=== PATIENT | female | born 1955 | race Caucasian/White ===

== ENCOUNTER → 2020-05-25 10:16 | Outpatient (BNVA) | payer SELFPAY | PROVIDERS: PCP Family Medicine; Visit Provider Nurse Practitioner | DX: N39.0 Urinary tract infection, site not specified (principal) | CPT/HCPCS: 81000 ==

== ENCOUNTER → 2020-06-01 12:22 | Outpatient (BNVA) | payer SELFPAY | PROVIDERS: PCP Family Medicine; Visit Provider Nurse Practitioner | DX: N39.0 Urinary tract infection, site not specified (principal) | CPT/HCPCS: 81000; 87077; 87086; 87184 ==

== ENCOUNTER → 2020-06-08 09:04 | Outpatient (BNVA) | payer SELFPAY | PROVIDERS: PCP Family Medicine; Visit Provider Family Medicine Adult Medicine | DX: N39.0 Urinary tract infection, site not specified (principal); R39.15 Urgency of urination; N81.10 Cystocele, unspecified; Z87.440 Personal history of urinary (tract) infections | CPT/HCPCS: 81003 ==

== ENCOUNTER → 2021-01-23 15:47 | Outpatient (BNVA) | payer SELFPAY | PROVIDERS: PCP Family Medicine; Visit Provider Obstetrics & Gynecology | DX: N81.10 Cystocele, unspecified (principal); Z87.440 Personal history of urinary (tract) infections; Z90.710 Acquired absence of both cervix and uterus | CPT/HCPCS: 76830 ==

== ENCOUNTER → 2021-02-16 15:29 | Outpatient (BNVA) | payer SELFPAY | PROVIDERS: PCP Family Medicine; Visit Provider Obstetrics & Gynecology | DX: N39.3 Stress incontinence (female) (male) (principal); N81.10 Cystocele, unspecified; N81.9 Female genital prolapse, unspecified; Z87.440 Personal history of urinary (tract) infections; R39.15 Urgency of urination | CPT/HCPCS: 87635 ==

== ENCOUNTER 2021-02-21 10:18 | Observation (INO) | payer SELFPAY ==
[2021-02-16 14:20] VITALS: BMI 24.0
--- NOTE | 2021-02-16 14:34 | P.ANESASSM_ITS ---
Pre-Anesthetic Assessment Pre-Anesthetic Assessment: Height/Weight: Height 1.63 m Weight 63.503 kg Proposed Procedure: Operation Date: 02/21/21 11:30 Proposed Procedures p Sub urethral sling, colporrhaphy, anterior repair [id number] N81.9 N81.10 N39.3(Not Applicable) - Vannesa Greer MD s Anterior Repair(Not Applicable) - Vannesa Greer MD Was Beta Mahendra taken within 24 hours: N/A Was Clonidine taken within 24 hours: N/A Social: Social History: No alcohol and No tobacco Comment: Smokes suma Exam: Pre-Anes Outpt Exam: alert, oriented x 3, clear to auscultation bilaterally and regular rate & rhythm Airway: Submandibular: WNL Cervical ROM: WNL MP: 2 Dentition: False History/ROS: No significant history except as noted Pulmonary: Pulmonary: COPD Anesthetic Plan: ASA status: 2 Anesthesia: General Risk of > 500 ml blood loss (7ml/kg in children): No PFSH Anesthesia PFSH: Medical History Female bladder prolapse History of chronic urinary tract infection Hx of cervical cancer Urgency of urination Urinary tract infection Surgical History H/O section 1984- distress H/O: hysterectomy History of laparotomy 01/09/1999- laparotomy with BSO and extensive adhesiolysis, nunez urethropexy, Performed by Dr. Gomez at [facility] in [place], [place]. History of left oophorectomy 1982- partial left oophorectomy, Benign tumor of the ovary. Hx of hysterectomy S/P appendectomy 01/09/1999-Performed at time of Laparotomy with BSO and adhesiolysis. Performed by Dr. Gomez at [facility] in [place], [place]. S/P conization of cervix 1981- precancer of cervix S/P tonsillectomy 1974 Family History Father Hyperlipidemia Hypertension Diabetes Heart disease Mother Cancer unknown source Denies family history of Ovarian cyst Chronic kidney disease (CKD) Bleeding disorder Thyroid disease Stroke Data Anesthesia Cardiac Studies: No Data to Display
[2021-02-21] VITALS (14 sets, daily range): BP systolic 97–151; BP diastolic 53–82; PULSE 51–96; RESP 15–27; TEMP 36.1–36.5; O2SAT 90–99
[2021-02-21] MEDS: sodium chloride 0.9% 1,000 ML 30 ML IV (07:30)
[2021-02-21] MEDS: acetaminophen 1,000 MG/100 ML PIGGYBACK 400 MG IV (07:30)
--- NOTE | 2021-02-21 07:36 | P.ANESUD_ITS ---
Pre-Anesthetic Update Pre-Anesthetic Assessment: Date of Surgery/Procedure: 02/21/21 Preop Amarilis gnosis: bladder prolapse Proposed Procedure: Operation Date: 02/21/21 09:00 Proposed Procedures p Sub urethral sling, colporrhaphy, anterior repair [id number] N81.9 N81.10 N39.3(Not Applicable) - Vannesa Greer MD s Anterior Repair(Not Applicable) - Vannesa Greer MD Any changes to Pre-Anesthetic Assessment?: Yes Last Intake: Intake Last Liquid Date 02/20/21 Last Liquid Time 20:00 Last Solid Date 02/20/21 Last Solid Time 20:00 Vitals: Temperature 97.7 F 02/21/21 07:12 Pulse Rate 53 L 02/21/21 07:12 Pulse Rhythm 02/21/21 07:13 Pulse Strength 3+ Normal 02/21/21 07:13 Respiratory Rate 18 02/21/21 07:12 Blood Pressure 151/82 02/21/21 07:12 Blood Pressure Annabel n 105 02/21/21 07:12 Pulse Oximetry 98 02/21/21 07:12 Oxygen Delivery Me thod 02/21/21 07:13 Exam: Pre-Anes Outpt Exam: alert, oriented x 3, clear to auscultation bilaterally and regular rate & rhythm Cardiac Studies: No Data to Display
[2021-02-21] MEDS: gabapentin 300 mg Capsule PO (07:43)
[2021-02-21] MEDS: CELEcoxib 200 mg Capsule 400 MG PO (07:44)
[2021-02-21] MEDS: ketorolac 30 mg/mL INJ IVP ×3 (07:50→17:25)
[2021-02-21 07:52] LABS: Eosinophils # 0.1 10^3/uL (0.0-0.8); Hematocrit 40.2 % (37.0-47.0); Hemoglobin 13.2 g/dL (11.5-15.3); Lymphocytes # 1.9 10^3/uL (0.8-4.8); Lymphocytes % 42.5 %; Mean Corpuscular HGB Conc 32.8 g/dL (30.0-36.0); Mean Corpuscular Hemoglobin 29.8 pg (28.0-34.0); Mean Corpuscular Volume 90.7 fL (81-99); Mean Platelet Volume 10.3 fL (7.4-10.4); Monocytes # 0.4 10^3/uL (0.2-0.9); Monocytes % 9.8 %; Neutrophils # 2.03 10^3/uL (1.8-7.7); Neutrophils % 45.5 %; Nucleated Red Blood Cells % 0 %; Platelet Count 183 10^3/cmm (130-400); Red Blood Count 4.43 10^6/uL (4.1-5.3); Red Cell Distribution Width 14.3 % (12.1-15.1); White Blood Count 4.5 10^3/uL (4.0-10.0)
--- NOTE | 2021-02-21 08:32 | W.PM.OPSUD ---
Surgery/Procedure H&P Update DATE OF PROCEDURE: February 21, 2021 DATE H&P PERFORMED: 02/16/21 H&P UPDATE INFORMATION: I have reviewed H&P completed within last 30 days, I have examined patient prior to procedure and No changes to prior documentation PREOP DIAGNOSIS: bladder prolapse PLANNED PROCEDURE: Operation Date: 02/21/21 09:00 Proposed Procedures p Sub urethral sling, colporrhaphy, anterior repair [id number] N81.9 N81.10 N39.3(Not Applicable) - Vannesa Greer MD s Anterior Repair(Not Applicable) - Vannesa Greer MD
[2021-02-21 08:37] LABS: Anion Gap 11.9 (5-19); Blood Urea Nitrogen 17 mg/dL (8-23); Calcium 9.2 mg/dL (8.5-10.5); Carbon Dioxide 24 mmol/L (22-29); Chloride 107 mmol/L (98-107); Creatinine Clr Calc Pharmacy 87.0623; Glomerular Filtration Rate 100.6 mL/min (90-130); Glucose 100 mg/dL (65-115); Osmolality Calculated 290 mOsm/kg (285-295); Potassium 3.9 mmol/L (3.5-5.1); Sodium 139 mmol/L (136-145)
--- NOTE | 2021-02-21 10:27 | PM.OP ---
Operative Report Date of procedure: February 21, 2021 Pre-op Diagnosis: bladder prolapse Post-op diagnosis: same Procedure Done: Anterior colporrhaphy, suburethral sling, perineorrhaphy, cystoscopy Implants: sub urethral sling Pathology: none sent Surgeon: Vannesa Greer Anesthesia: General Estimated blood loss (mL): 25 IV fluids (mL): 800 Urine output (mL): 500 Complications: none Findings: cystocele, loose perineal body, severe incontinence Condition: stable Disposition: PACU Brief History: The patient presented with worsening urinary incontinence and palpable bulge in her vagina Procedure: The patient was taken to the operating room, where monitored anesthesia was administered and found to be adequate. She was prepped and draped in the normal sterile fashion in the [facility] A flores catheter was placed. The vaginal cuff was identified and an allis clamp was placed in the midline of the vaginal mucosa, approximately 2 cm anterior to the cuff. A second allis clamp was placed in the midline of the vaginal mucosa, approximately 3 cm from the introitus. An incision was made in the midline from clamp to clamp. The vaginal mucosa was clamped laterally and the cystocle dissected off of the vesicovaginal fascia. The cystocele was packed away and the vesicovaginal fascia brought together in the midline with figure of 8 interrupted sutures of O-Vicryl. The packing was removed and the excess vaginal tissue trimmed. The incision was repaired with 0-Vicryl in a running fashion. Attention was then turned to the sling portion of the procedure. An Allis clamp was placed approximately 2 cm below the urethra and another placed approximately 3 cm distal from that. An incision was made between the 2. The tissue was sharply and bluntly dissected along the pubic ramus bilaterally. The sling was placed on the left first by going through the incision and attaching the sling to the obturator foramen membrane . The right side was performed in a similar fashion, placing the applicator through the incision and attaching to the obturator foramen membrane. The Flores catheter was removed and the cystoscope advanced into the blader. Methylene blue was given and bilateral spill of blue fluid was noted from both ureteral orifices. The bladder was drained. 250 ml of sterile saline was placed into the bladder. leakage was noted with valsalva. The sling was tightened until there was no further leakage. The incision was repaired with 2-0 Vicryl in a running locked fashion. Attention was then turned to the perineorrhphy. Allis clamps were placed on the posterior fourchette. A 3 cm wedge of the fourchette was removed. This was repaired in the usual fashion with O-vicryl. Vaginal packing was placed. The patient tolerated the procedure well. Sponge, lap and needle counts were correct times three. She was taken to the recovery room in stable condition.
--- NOTE | 2021-02-21 10:29 | P.PCN_ITS ---
PACU note PACU note: VSS, Good respiratory effort, report to PRODUCTION CONTROL EXPEDITER Post-Anesthesia Exam: awake
--- NOTE | 2021-02-21 10:29 | PM.PACU ---
PACU note PACU note: VSS, Good respiratory effort, report to WEB MACHINE TENDER Post-Anesthesia Exam: awake
[2021-02-21] MEDS: dextrose 5%-lactated ringers 1,000 ML 125 ML IV (11:39)
[2021-02-21] MEDS: HYDROcodone-acetaminophen 5-325 mg Tablet 1 TAB PO ×3 (12:33→23:21)
--- NOTE | 2021-02-21 13:50 | ANE.PACU2 ---
Inpatient post-anesthesia follow up: Airway intact: Yes Vital signs: Temperature 97.5 F Pulse Rate 62 Respiratory Rate 18 Blood Pressure 101/62 Pulse Oximetry 96 Oxygen Delivery Me thod Room Air Oxygen Flow Rate Fraction of Inspir ed Oxygen Hydration adequate: Yes Nausea and vomiting: No Pain level: 3 Mental status: Baseline
[2021-02-21] MEDS: phenazopyridine 100 mg Tablet 200 MG PO (15:20)
--- NOTE | 2021-02-21 17:15 | PC.NURSE ---
Pt ambulated in hallway and around nurses station x4 laps. Pt tolerated well and denied any complaints. Pt back requests to go back to bed. IV restarted, ice pack given for perineum. Pt requested something for pain at this time.
--- NOTE | 2021-02-21 18:00 | PC.NURSE ---
Pt pulled out IV, nurse called in at this time. IV pump turned off, call made to Dr Greer to see if new IV is needed to order received that no IV is needed at this time.
[2021-02-21] MEDS: docusate sodium 100 mg Capsule PO (18:28)
[2021-02-21] MEDS: ibuprofen 800 mg tablet PO (20:27)
[2021-02-22 01:05] VITALS: RESP 16
[2021-02-22] MEDS: oxyCODONE-APAP 5-325 mg Tablet 1 TAB PO ×2 (01:05→07:29)
[2021-02-22 05:30] VITALS: BP 98/59; PULSE 60; RESP 15; TEMP 36.4
[2021-02-22 06:06] LABS: Hematocrit 37.3 % (37.0-47.0); Mean Corpuscular HGB Conc 32.2 g/dL (30.0-36.0); Mean Corpuscular Hemoglobin 29.6 pg (28.0-34.0); Mean Corpuscular Volume 92.1 fL (81-99); Platelet Count 183 10^3/cmm (130-400); Red Blood Count 4.05 10^6/uL (4.1-5.3); Red Cell Distribution Width 14.5 % (12.1-15.1); White Blood Count 13.3 10^3/uL (4.0-10.0)
[2021-02-22 07:29] VITALS: RESP 18
[2021-02-22] MEDS: docusate sodium 100 mg Capsule PO (09:24)
--- NOTE | 2021-02-22 10:12 | PC.NURSE ---
Dr Greer in room removing packing at this time
[2021-02-22 10:40] VITALS: BP 137/79; PULSE 75; RESP 18; TEMP 36.4; O2SAT 98
--- NOTE | 2021-02-22 10:40 | PM.DCS ---
Discharge Providers Date of Admission: 02/21/21 10:18 Date of Discharge: February 22, 2021 Attending Provider at Admission: Vannesa Greer MD Attending Provider at Discharge: Vannesa Greer MD Primary Care Provider: Mar Jaeger MD Diagnoses at Discharge Discharge Diagnosis (1) Postoperative state: Status: Acute Reason for Visit Reason for Visit: Sub urethral sling, colporrhaphy, anterior repair Hospital Course Hospital Course The patient was admitted for surgery. She did well postoperatively and was ready for discharge on day #1 Physical Exam Const: COMMON NORMALS: no acute distress, average body habitus, patient oriented x3, no limitations, healthy appearing and alert GENERAL APPEARANCE: cooperative, comfortable, well kempt and well developed ORIENTATION/CONSCIOUSNESS: Yes awake, Yes oriented to person, Yes oriented to place and Yes oriented to time Neck/C-Spine: COMMON NORMALS: full ROM and supple Resp: COMMON NORMALS: normal respiratory effort EFFORT & INSPECTION: Yes able to speak in complete sentences GI: COMMON NORMALS: Soft to palpation and non-tender PALPATION: Yes Soft to palpation : SPECULUM EXAM - VAGINA: Yes other (packing removed. sutures are clean/dry/intact) Extremity: COMMON NORMALS: no clubbing, cyanosis or edema and no calf tenderness Neuro: COMMON NORMALS: patient oriented x3 SENSORIUM/ORIENTATION: Yes alert, Yes oriented to person, Yes oriented to place and Yes oriented to time Psych: APPEARANCE: Yes well kempt Urinary Catheter Management^: Jacobs: Cath Placed During This Visit: yes, but has since been removed by the nurse Reason for Continuing Indwelling Catheter: Decision to DC Catheter Date Urinary Catheter Removed: 02/22/21 Time Urinary Catheter Discontinued: 10:15 Discharge Data Data Completed and Pending: Pending at discharge Category Date Time Status ES surgery / GI i mages Routine Exams 02/21/21 08:19 Ordered Urine Culture Rou mary jo Lab 02/21/21 07:07 Results Labs from last 24 hours 02/22/21 05:15 WBC 13.3 H RBC 4.05 L Hgb 12.0 Hct 37.3 MCV 92.1 MCH 29.6 MCHC 32.2 RDW 14.5 Plt Count 183 MPV 11.0 H Vitals: Last Vital Signs Temp 97.6 F 02/22/21 05:30 Pulse 60 02/22/21 05:30 Resp 18 07/07/21 07:29 BP 98/59 02/22/21 05:30 Pulse Ox 94 02/21/21 15:20 Discharge Plan Discharge Patient Disposition: Home Condition: Stable Prescriptions: New hydrocodone-acetaminophen 5-325 mg Tablet 1 tab PO Q4H PRN (Reason: MODERATE) Qty: 20 RF: 0 Discontinued Tylenol PM 500 mg PO PRN RF: 0 Discharge Orders: Discharge Order (Routine); Ordered 02/22/21 Ordered By: Vannesa Greer Referrals: Vannesa Greer MD [Physician] - 02/27/21 8:45 am (* Your incision check appointment is on 02/27/2021 at 8:45am. * Your 6 week follow up appointment is on 04/03/2021 at 10:45am.) Patient Instructions: Anterior Vaginal Repair (DC), Bladder Sling Procedures (DC), OB Discharge Report, OB Food/Drug Interaction Guide, Opioid Safety Discharge Attestations Time Spent in Discharge Care*: less than 30 min Quality Metrics Clinical Quality Measures During this hospital stay, did patient experience: None Coding Level of Care Code Acute Chg FW DC note Diagnoses Postoperative state Z98.890
--- NOTE | 2021-02-22 11:24 | PC.NURSE ---
Patient hit call light to tell nurse she had urinated, patient did not pee in urine hat, patient educated on importance of peeing in urine hat and states that she will pee in urine hat next time.
[2021-02-22 11:30] VITALS: BP 137/79; PULSE 75; RESP 18; TEMP 36.4; O2SAT 98
[2021-02-22] MEDS: HYDROcodone-acetaminophen 5-325 mg Tablet 1 TAB PO (11:33)
== END 2021-02-22 11:40 | disposition home or self-care (01) ==
LOC: OBGYN 10:19
PROVIDERS: Admitting Provider Obstetrics & Gynecology; PCP Family Medicine; Visit Provider Obstetrics & Gynecology
PROC: (CPT 57288; principal; 2021-02-21 09:00)
PROC: 0JQC0ZZ Repair Pelvic Region Subcutaneous Tissue and Fascia, Open Approach (ICD-10-PCS; CPT 57240; 2021-02-21 09:00)
DX: N81.10 Cystocele, unspecified (principal); J44.9 Chronic obstructive pulmonary disease, unspecified; Z85.41 Personal history of malignant neoplasm of cervix uteri; Z82.49 Family history of ischemic heart disease and other diseases of the circulatory system; Z83.3 Family history of diabetes mellitus
CPT/HCPCS: 57240; 57288; 36415; 80048; 85025; 85027; 87086; 96365; 96374; C1713; G0378; J0690; J1100; J1885; J2405; J2704; J2710; J3010; J3490; J7030; Q9968

== ENCOUNTER → 2021-03-03 09:59 | Outpatient (BNVA) | payer OTHER, SELFPAY | PROVIDERS: PCP Family Medicine; Visit Provider Emergency Medicine | DX: Z01.812 Encounter for preprocedural laboratory examination (principal); Z20.822 Contact with and (suspected) exposure to COVID-19 | CPT/HCPCS: 87635 ==

== ENCOUNTER → 2021-03-07 08:35 | Outpatient (BNVA) | payer SELFPAY | PROVIDERS: PCP Family Medicine; Visit Provider Obstetrics & Gynecology | DX: N89.8 Other specified noninflammatory disorders of vagina (principal); Z98.890 Other specified postprocedural states | CPT/HCPCS: 87070; 87077; 87184; 87205; 87481; 87512; 87798; 87799 ==

== ENCOUNTER → 2021-04-03 11:23 | Outpatient (BNVA) | payer SELFPAY | PROVIDERS: PCP Family Medicine; Visit Provider Obstetrics & Gynecology | DX: R10.2 Pelvic and perineal pain (principal); Z98.890 Other specified postprocedural states | CPT/HCPCS: 87070; 87205; 87481; 87512; 87798; 87799 ==

== ENCOUNTER 2021-05-02 18:09 | Emergency (ER) | payer SELFPAY ==
[2021-05-02 18:14] VITALS: BP 174/78; PULSE 110; RESP 20; TEMP 36.6; O2SAT 95; BMI 24.7
[2021-05-02] MEDS: diphenhydrAMINE 50 mg Capsule PO (18:42)
[2021-05-02] MEDS: predniSONE 20 mg Tablet 60 MG PO (18:42)
[2021-05-02] MEDS: famotidine 20 mg Tablet 40 MG PO (18:43)
[2021-05-02 18:44] VITALS: BP 93/62; PULSE 122; RESP 22; O2SAT 94
[2021-05-02 19:06] VITALS: BP 100/62; PULSE 104; O2SAT 93
--- NOTE | 2021-05-02 19:13 | W.ED.GENADLT ---
HPI - General Adult General: Chief complaint: Allergic Reaction Stated complaint: Allergic Reaction to Metronidazol Time Seen by Provider: 05/02/21 18:20 History of Present Illness: HPI narrative: Patient is a 65-year-old female with a history of allergies to penicillin who presents emergency after taking metronidazole at 4:30 PM. Shortly after, patient reports diffuse tingling throughout her body and itchy redness in her hands, chest, abdomen, legs and back. Patient also reported mild nausea but denies any vomiting, abdominal complaints or diarrhea or shortness of breath. Patient has no known allergy to metronidazole in the past. Patient denies any alcohol use. Onset: 4:30pm Duration: 2 hrs Location: home Severity:moderate Review of Systems Narrative: Constitutional: No fever, no chills. HEENT: No vision changes CV: No chest pain, no palpitations PULM: no cough, no dyspnea. GI: No abdominal pain, +N/-V/-D. : No dysuria MSKEL: No muscle pain SKIN: +arms and legs redness, +abdominal redness and hives NEURO: No headache, no focal weakness. HEME: No visible bruises PSYCH: Normal mood PFSH ED PFSH: Medical History Female bladder prolapse History of chronic urinary tract infection Hx of cervical cancer Urgency of urination Urinary tract infection Surgical History H/O section 1984- distress H/O: hysterectomy History of laparotomy 01/09/1999- laparotomy with BSO and extensive adhesiolysis, nunez urethropexy, Performed by Dr. Gomez at [facility] in [place], [place]. History of left oophorectomy 1982- partial left oophorectomy, Benign tumor of the ovary. Hx of hysterectomy S/P appendectomy 01/09/1999-Performed at time of Laparotomy with BSO and adhesiolysis. Performed by Dr. Gomez at [facility] in [place], [place]. S/P conization of cervix 1981- precancer of cervix S/P tonsillectomy 1974 Family History Father Hyperlipidemia Hypertension Diabetes Heart disease Mother Cancer unknown source Denies family history of Ovarian cyst Chronic kidney disease (CKD) Bleeding disorder Thyroid disease Stroke Social History Smoking and tobacco status: former smoker Alcohol intake: never Female Reproductive History: Date of last menstrual period: 11/10/20 Physical Exam Narrative: EXAM NARRATIVE: Head: Atraumatic Eyes: PERRL, conjunctiva without injection ENT: Mucous membrane moist, no oropharygeal involvement, no stridor NECK: Supple, ROM intact LUNGS: LCTAB, no crackles/rhonchi CV: RRR ABDOMEN: Soft, nontender in all quadrants, +utarica over the abdomen EXTREMITY: Normal ROM SKIN: +erythema over arms and legs NEURO: Awake and alert, no focal motor deficits PSYCH: Normal mood and affect Course Vital Signs: Vital signs: Vital Signs Temperature 97.8 F 05/02/21 18:14 Pulse Rate 87 05/02/21 20:21 Respiratory Rate 17 05/02/21 20:21 Blood Pressure 106/82 05/02/21 20:21 Pulse Oximetry 96 05/02/21 20:21 MDM - General Adult MDM Narrative: Medical decision making narrative: 65-year-old female with no known allergies to metronidazole presenting to the emergency room with complaints of diffuse pruritic erythema and urticaria over the abdomen. On exam, patient is is noted to be mildly tachycardic to the 110s. No wheezing on exam. No signs of oral airway involvement. Intervention: Pepcid, benadryl, IVF, prednisone, PO challenge, and reevaluation On reassessment 9 PM, patient appears to be symptomatically improved. Erythema and urticaria appears to be improved at this time. No signs of oral airway compromise. Patient continues to be hemodynamically stable. Heart rate improved after medicine. At this time, patient elects to go home. Patient tolerated p.o. without any difficulty. Disposition: Discharge. I have given patient strict return precaution for any signs of angioedema or delayed anaphylaxis. Discharge Plan Discharge Patient Disposition: Home Clinical Impression: Hives Condition: Stable Prescriptions: No Action acetaminophen [Tylenol] 325 mg capsule 325 mg PO QID PRNRF: 0 Move Free Ultra Faster Comfort 216 mg tablet PO DAILY RF: 0 metronidazole [Flagyl] 500 mg tablet 500 mg PO BID Qty: 14 RF: 0 Discharge Orders: Discharge ED (Routine); Ordered 05/02/21 Ordered By: Malka Carter Referrals: Mar Jaeger MD [Primary Care Provider] - Discharge Diet: Advance as tolerated Discharge Activity: Resume usual activity Patient Instructions: Urticaria (ED) Activity Restrictions/Additional Instructions: Please come back to the emergency room if you notice any worsening rash, redness, difficulty swallowing, nausea/vomiting, diarrhea, difficulty breathing, drooling, difficulty speaking, or any new or concerning complaints. Coding Level of Care Code ED Pharmacology Teacher for Alireza Monsivais
[2021-05-02] MEDS: sodium chloride 0.9% 1,000 ML 999 ML IV (19:45)
[2021-05-02 20:21] VITALS: BP 106/82; PULSE 87; RESP 17; O2SAT 96
[2021-05-02 20:34] VITALS: BP 106/86; PULSE 87; RESP 17; O2SAT 96
== END 2021-05-02 20:33 | disposition home or self-care (01) ==
PROVIDERS: Emergency Provider Emergency Medicine; PCP Family Medicine
DX: L50.9 Urticaria, unspecified (principal); Z85.41 Personal history of malignant neoplasm of cervix uteri; Z87.891 Personal history of nicotine dependence
CPT/HCPCS: 96360; 99283; J7030; J7512; Q0163

== ENCOUNTER → 2021-05-22 09:48 | Outpatient (BNVA) | payer SELFPAY | PROVIDERS: PCP Family Medicine; Visit Provider Obstetrics & Gynecology | DX: R30.0 Dysuria (principal) | CPT/HCPCS: 81000; 87077; 87086; 87184 ==

== ENCOUNTER → 2021-06-19 14:00 | Outpatient (BNVA) | payer SELFPAY | PROVIDERS: PCP Family Medicine; Visit Provider Obstetrics & Gynecology | DX: R39.9 Unspecified symptoms and signs involving the genitourinary system (principal) | CPT/HCPCS: 81000 ==

== ENCOUNTER → 2021-07-17 09:44 | Outpatient (BNVA) | payer SELFPAY | PROVIDERS: PCP Family Medicine; Visit Provider Obstetrics & Gynecology | DX: R39.89 Other symptoms and signs involving the genitourinary system (principal); N81.9 Female genital prolapse, unspecified; N32.81 Overactive bladder | CPT/HCPCS: 81000 ==

== ENCOUNTER → 2021-09-15 08:17 | Outpatient (BNVA) | payer MEDICARE, SELFPAY | PROVIDERS: PCP Family Medicine; Visit Provider Obstetrics & Gynecology | DX: N81.10 Cystocele, unspecified (principal); N81.9 Female genital prolapse, unspecified; Z20.822 Contact with and (suspected) exposure to COVID-19 | CPT/HCPCS: 87635 ==

== ENCOUNTER 2021-09-20 11:23 | Observation (INO) | payer MEDICARE, SELFPAY ==
[2021-09-14 15:01] VITALS: BMI 24.0
--- NOTE | 2021-09-14 15:24 | ANES.PREANE2 ---
Pre-Anesthetic Assessment Height/Weight: Height 1.63 m Weight 63.503 kg Preop Diagnosis: bladder prolapse Operation Date: 09/20/21 07:00 Proposed Procedures p Sacrospinous Ligament Suspension [id number] N81.9 N81.10(Not Applicable) - Suhail Leach MD s Anterior Repair Anterior Colporrhaphy(Not Applicable) - Suhail Leach MD Familial anesthetic complications: none Was Beta Mahendra taken within 24 hours: N/A Was Clonidine taken within 24 hours: N/A Social Tobacco and No alcohol Exam alert, oriented x 3 and regular rate & rhythm Airway Submandibular: within normal limits Cervical ROM: within normal limits Mallampati: Class II Dentition: false Pulmonary Chronic Obstructive Pulmonary Disease Anesthetic Plan ASA status: 2 Anesthesia: General Risk of > 500 ml blood loss (7ml/kg in children): No Medications/Allergies Home Medications Medication Instructions Recorded Confirmed Last Taken Type acetaminophen 325 mg capsule 325 mg PO QID PRN 02/27/21 09/14/21 Unknown History (Tylenol) calcium fructoborate 216 mg tablet mg PO DAILY tab 03/03/21 07/17/21 Unknown History (Move Free Ultra Faster Comfort) Laxatives PO .every other day 07/17/21 07/17/21 Unknown History Allergies Allergy/AdvReac Type Severity Reaction Status Date / Time metronidazole [From Flagyl] Allergy ALGY-Hives Verified 07/17/21 08:56 Penicillins AdvReac Severe Hives Verified 07/17/21 08:56 Sulfa (Sulfonamide AdvReac Intermediate Itch & rash Verified 07/17/21 08:56 Antibiotics) [facility] Anesthesia Medical History Female bladder prolapse History of chronic urinary tract infection Hx of cervical cancer Urgency of urination Urinary tract infection Surgical History H/O section 1984- distress H/O: hysterectomy History of laparotomy 01/09/1999- laparotomy with BSO and extensive adhesiolysis, nunez urethropexy, Performed by Dr. Gomez at [facility] in [place], [place]. History of left oophorectomy 1982- partial left oophorectomy, Benign tumor of the ovary. Hx of hysterectomy S/P appendectomy 01/09/1999-Performed at time of Laparotomy with BSO and adhesiolysis. Performed by Dr. Gomez at [facility] in [place], [place]. S/P conization of cervix 1981- precancer of cervix S/P tonsillectomy 1974 Family History (Updated 07/17/21 @ 08:59 by Abby Aburto, RN) Father Hyperlipidemia Hypertension Diabetes Heart disease Mother Cancer unknown source Denies family history of Colon cancer Ovarian cancer Ovarian cyst Chronic kidney disease (CKD) Breast cancer Bleeding disorder Uterine cancer Thyroid disease Stroke Social History Smoking and tobacco status: former smoker Alcohol intake: never Female Reproductive History Date of last menstrual period: 11/10/20 Data Anesthesia Cardiac Studies: No Data to Display
[2021-09-20] VITALS (17 sets, daily range): BP systolic 97–174; BP diastolic 60–97; PULSE 60–91; RESP 14–18; TEMP 36.1–37.1; O2SAT 91–99
--- NOTE | 2021-09-20 06:25 | P.ANESUD_ITS ---
Pre-Anesthetic Update Pre-Anesthetic Assessment: Date of Surgery/Procedure: 09/20/21 Preop Amarilis gnosis: Rectocele, Cystocele, Vaginal vault prolapse Proposed Procedure: Operation Date: 09/20/21 07:00 Proposed Procedures p Sacrospinous Ligament Suspension 55485 43827 N81.9 N81.10(Not Applicable) - Suhail Leach MD s Anterior Repair Anterior Colporrhaphy(Not Applicable) - Suhail Leach MD Changes from Pre-Anesthetic Assessment: None Last Intake: > 8 hrs Exam: Pre-Anes Outpt Exam: alert, oriented x 3, clear to auscultation bilaterally and regular rate & rhythm Cardiac Studies: No Data to Display
[2021-09-20] MEDS: sodium chloride 0.9% 500 ML IV (06:39)
[2021-09-20] MEDS: scopolamine 1.5 Patch 1 PATCH TRANSDERMA (06:43)
[2021-09-20 06:57] LABS: Basophils % 0.2 %; Eosinophils # 0.1 10^3/uL (0.0-0.8); Eosinophils % 1.3 %; Hematocrit 41.5 % (37.0-47.0); Lymphocytes # 2.3 10^3/uL (0.8-4.8); Lymphocytes % 38.8 %; Mean Corpuscular HGB Conc 33.7 g/dL (30.0-36.0); Mean Corpuscular Hemoglobin 29.9 pg (28.0-34.0); Mean Corpuscular Volume 88.7 fl (81-99); Mean Platelet Volume 10.4 fL (7.4-10.4); Monocytes # 0.4 10^3/uL (0.2-0.9); Monocytes % 6.1 %; Neutrophils # 3.18 10^3/uL (1.8-7.7); Neutrophils % 53.4 %; Nucleated Red Blood Cells % 0 %; Platelet Count 239 10^3/cmm (130-400); Red Blood Count 4.68 10^6/uL (4.1-5.3); Red Cell Distribution Width 14.3 % (12.1-15.1)
[2021-09-20] MEDS: levofloxacin-dextrose 5 % 500 MG/100 ML PREMIX 100 MG IV (07:01)
--- NOTE | 2021-09-20 07:01 | W.PM.OPSUD ---
Surgery/Procedure H&P Update DATE OF PROCEDURE: September 20, 2021 DATE H&P PERFORMED: 09/18/21 H&P UPDATE INFORMATION: I have reviewed H&P completed within last 30 days and No changes to prior documentation PREOP DIAGNOSIS: Rectocele, Cystocele, Vaginal vault prolapse PLANNED PROCEDURE: Operation Date: 09/20/21 07:00 Proposed Procedures p Sacrospinous Ligament Suspension 14112 [id number] N81.9 N81.10(Not Applicable) - Suhail Leach MD s Anterior Repair Anterior Colporrhaphy(Not Applicable) - Suhail Leach MD
[2021-09-20] MEDS: vancomycin 1,000 MG in sodium chloride 0.9% 250 ML 250 MG IV (07:20)
[2021-09-20 07:36] LABS: Alanine Aminotransferase 11 U/L (0-33); Albumin Level 4.1 g/dL (3.5-5.2); Alkaline Phosphatase 95 IU/L (35-105); Anion Gap 16.9 (5-19); Aspartate Amino Transferase 13 U/L (0-32); Blood Urea Nitrogen 14 mg/dL (8-23); Calcium 9.8 mg/dL (8.5-10.5); Carbon Dioxide 22 mmol/L (22-29); Chloride 107 mmol/L (98-107); Creatinine Clr Calc Pharmacy 64.4375; Glomerular Filtration Rate 123.8 mL/min (90-130); Glucose 92 mg/dL (65-115); Osmolality Calculated 294 mOsm/kg (285-295); Potassium 3.9 mmol/L (3.5-5.1); Sodium 142 mmol/L (136-145); Total Bilirubin 0.3 mg/dL (0.15-1.2); Total Protein 7.1 g/dL (6.6-8.7)
[2021-09-20 08:13] LABS: Add Urine Microscopic? YES; Bilirubin Urine Neg (Negative); Blood Urine Neg (Negative); Glucose Urine UA Norm (Normal); Ketones Urine Negative (Negative); Leukocyte Esterase Urine 1+ (Negative); Nitrate Urine Positive (Negative); Protein Urine Neg (Negative); Specific Gravity, Urine 1.015 (1.005-1.030); Sulfosalicylic Acid Urine Negative (Negative); Urine Appearance Hazy (CLEAR); Urine Color Yellow (Yellow); Urobilinogen Urine Norm (Negative); pH Urine 8 (5-7)
[2021-09-20 08:14] LABS: Amorphous Sediment Urine 1+ /hpf; Bacteria Urine 3+ /hpf; Squamous Epithelial Cell Urine 0-4 /hpf (0-5)
[2021-09-20 08:15] LABS: Add Urine Culture? Yes
--- NOTE | 2021-09-20 08:43 | PM.OP ---
Operative Report Date of procedure: September 20, 2021 Pre-op diagnosis: Preop Diagnosis Rectocele, Cystocele, Vaginal vault prolapse Post-op diagnosis: Cystocele stage III Post-op findings: prominent cystocele Procedure done: Anterior colporrhaphy augmented with allograft single incision mid urethral sling. Cystoscopy Surgeon: Suhail Leach MD Estimated blood loss: 10 IV fluids: 600 Urine output: 300 Brief History: Mrs. Hooker Procedure: After obtaining informed consent, the patient was taken to the operating room and placed in the supine position, given general anesthesia, and prepped and draped in sterile fashion. The abdomen, vulva and vagina were prepped and draped in a sterile manner. A time out procedure was performed. The anterior vaginal mucosa beneath the midurethra was infiltrated with 2% lidocaine with epinephrine. A vertical midline incision was made beneath the midurethra, nearly 1.5 cm length. Careful submucosal dissection was performed bilaterally up to the interior portion of the inferior pubic ramus. The insertion of adductor longus tendon on the patient?s pubic ramus was identified as reference land malaika. Palpated the notch along the internal edge of ischiopubic ramus where the adductor longus tendon and the inferior pubic ramus meet. The Altis single incision sling (SIS) was selected. Then the needle of the SIS inserted aiming at the location of this notch. One of the integrated self-fixating tips place onto the needle by sliding it over the end of the needle. The needle/sling assembly was inserted toward the location of identified reference notch making sure that the flat of the handle is perpendicular to the desired path. The needle was tracked along the posterior surface of the ischiopubic ramus until the midline malaika on the mesh is approximately at the midline position under the urethra. The needle was removed and the same was repeated on the contralateral side until the appropriate sling tension under the urethra was achieved ensuring that the mesh lays flat. The needle was removed and vaginal incision was closed in a running interlocking fashion with 2-0 Vicryl. The vaginal mucosa was then injected in the midline with normal saline. The vaginal mucosa was scored in the midline with the Bovie approximately 1 cm medial to the urethral meatus to 1 cm distal to the vaginal cuff. This vaginal mucosa was then undermined and then incised in the midline with the Metzenbaum scissors. The lateral aspects of the vaginal mucosa were then grasped with the Allis clamps and the vaginal mucosa was then dissected off the underlying fascia with the Metzenbaum scissors. Again, there was noted to be quite a bit of oozing at the incision, which was controlled with cautery. After adequate dissection was performed, bilaterally. The Coloplast allograft is modified at time of application to fit spacea, 3 x 3 cm piece . The allograft placed in front of cystocele and suture is placed at distal end of graft and placed towards vaginal cuff. Final suture is placed on proximal portion of the graft to complete the placement overlying the bladder. Then Interrupted vertical mattress sutures of 0 Vicryl were used to elevate the cystocele superiorly. The excessive vaginal mucosa was then trimmed with the Metzenbaum scissors and the vaginal mucosa was then reapproximated in the running interlocking fashion with 2-0 Vicryl. After the anterior colporrhaphy it was noted that the sacrospinous dissection was unnecessary. Then the Jacobs catheter was removed and cystoscope was inserted. The bladder was filled with sterile water. Complete evaluation of the bladder mucosa was performed noting no lacerations, dimpling, tears, bleeding of the mucosa or muscular layers. Both ureteral orifices were identified. Prompt excretion of urine from both ureteral orifices was noted. Cystoscope was withdrawn. The Jacobs catheter was replaced. Excellent hemostasis was obtained. No vaginal packing was placed. Sponge, lap, needle, and instrument counts were correct times three. The patient was taken to the recovery room, awake and in stable condition.
--- NOTE | 2021-09-20 09:03 | PC.NURSE ---
Pt ready to transfer to the floor at 0902, but no rooms available at this time.
--- NOTE | 2021-09-20 11:30 | PC.NURSE ---
Patient to the floor at this time. Patient arrived on gurney and was able to move self to the OB bed without complication. Benjamin Garcia RN and this nurse at bedside. Patient oriented to room and assessed at this time.
[2021-09-20] MEDS: ketorolac 30 mg/mL INJ IVP ×2 (12:13→15:28)
[2021-09-20] MEDS: HYDROcodone-acetaminophen 5-325 mg Tablet PO ×2 (12:13→19:11)
--- NOTE | 2021-09-20 13:01 | ANE.PACU2 ---
Inpatient post-anesthesia follow up: Airway intact: Yes Vital signs: Temperature 97.9 F Pulse Rate 70 Respiratory Rate 16 Blood Pressure 136/80 Pulse Oximetry 95 Oxygen Delivery Me thod Room Air Oxygen Flow Rate Fraction of Inspir ed Oxygen Hydration adequate: Yes Nausea and vomiting: No Pain level: 1 Mental status: Baseline
[2021-09-20] MEDS: acetaminophen 325 mg Tablet 650 MG PO (16:56)
[2021-09-20] MEDS: docusate sodium 100 mg Capsule PO (16:57)
--- NOTE | 2021-09-20 17:13 | PC.NURSE ---
WENT INTO WALK PATIENT AND SHE WAS IN BED. OFFERED TO WALK WITH HER AND SHE STATED THAT SHE WANTED TO WAIT UNTIL HER DAUGHTER IN LAW BROUGHT HER ROBE AND HER TEETH. TOLD HER WE COULD GET HER A GOWN AND USE IT A ROBE AND SHE SAID SHE WANTED TO WAIT BECAUSE SHE REALLY DID NOT WANT TO WALK WITHOUT HER TEETH. TOLD HER THAT WOULD BE FINE. JELLO AND PUDDING AND APPLESAUCE GIVEN SINCE SHE IS UNABLE TO EAT DUE TO NOT HAVING HER TEETH.
[2021-09-21 04:18] VITALS: BP 103/66; PULSE 63; RESP 16; TEMP 36.7; O2SAT 95
[2021-09-21 05:49] LABS: Hematocrit 35.6 % (37.0-47.0); Hemoglobin 11.6 g/dL (11.5-15.3); Mean Corpuscular HGB Conc 32.6 g/dL (30.0-36.0); Mean Platelet Volume 10.2 fL (7.4-10.4); Platelet Count 204 10^3/cmm (130-400); Red Blood Count 3.87 10^6/uL (4.1-5.3); Red Cell Distribution Width 14.8 % (12.1-15.1); White Blood Count 9.4 10^3/uL (4.0-10.0)
--- NOTE | 2021-09-21 07:09 | PC.NURSE ---
17mL left in bladder, scanned bladder after voiding 250mL in hat.
[2021-09-21] MEDS: ibuprofen 800 mg tablet PO (09:12)
[2021-09-21] MEDS: docusate sodium 100 mg Capsule PO (09:12)
[2021-09-21 09:14] VITALS: BP 135/76; PULSE 59; RESP 17
[2021-09-21] MEDS: HYDROcodone-acetaminophen 5-325 mg Tablet PO (11:21)
[2021-09-21 11:23] VITALS: BP 170/71; PULSE 71; RESP 16; TEMP 36.9; O2SAT 98
--- NOTE | 2021-09-21 11:33 | PM.OBGYDC ---
Discharge Providers TRAP PULLER Date of Admission: 09/20/21 11:23 Date of Discharge: 09/21/21 Attending Provider at Admission: Suhail Leach MD Attending Provider at Discharge: Suhail Leach MD Primary Care Provider: María Saravia MD Reason for Visit Reason for Visit: vaginal vault prolapse Hospital Course Hospital Course Mrs. Borrero 66-year-old female with a history of vaginal vault prolapse/cystocele stage III. Admitted for planned posterior colporrhaphy and possible anterior colporrhaphy and sling. After anterior colporrhaphy augmented with allograft and single incision mid urethral sling was performed, no need for sacrospinous fixation was noted. The procedures were performed without complication. She tolerated procedure well. She is afebrile and hemodynamically stable postoperative day 1. Postoperative PVR within normal limits. She is tolerating diet well. Ambulating without difficulty. Physical Exam Narrative: EXAM NARRATIVE: GA: Alert and oriented ?3. HEENT: WNL. Heart: Regular rate and rhythm. Lungs: Clear to auscultation bilaterally. Abdomen: Bowel sounds present, nontende. DIETARY INTERNSHIP: Spotting bleeding. Extremities: No edema, no cyanosis, no calves pain. Urinary Catheter Management: Jacobs: Cath Placed During This Visit: yes, but has since been removed by the nurse Reason for Continuing Indwelling Catheter: Other Urinary Catheter Date of Insertion: 09/20/21 Urinary Catheter Time of Insertion: 07:30 Date Urinary Catheter Removed: 09/21/21 Time Urinary Catheter Discontinued: 05:19 History History History 4 Term 3 Miscarriages/Ectopic 1 0 Living Children 3 Discharge Data Studies Completed and Pending Pending at discharge Category Date Time Status Urine Culture Routine Lab 09/20/21 06:08 Results Laboratory Results WBC 9.4 10^3/uL (4.0-10.0) 09/21/21 05:16 RBC 3.87 10^6/uL (4.1-5.3) L 09/21/21 05:16 Hgb 11.6 g/dL (11.5-15.3) 09/21/21 05:16 Hct 35.6 % (37.0-47.0) L 09/21/21 05:16 MCV 92.0 fl (81-99) 09/21/21 05:16 MCH 30.0 pg (28.0-34.0) 09/21/21 05:16 MCHC 32.6 g/dL (30.0-36.0) 09/21/21 05:16 RDW 14.8 % (12.1-15.1) 09/21/21 05:16 Plt Count 204 10^3/cmm (130-400) 09/21/21 05:16 MPV 10.2 fL (7.4-10.4) 09/21/21 05:16 Neut % (Auto) 53.4 % 09/20/21 06:23 Lymph % (Auto) 38.8 % 09/20/21 06:23 [place] % (Auto) 6.1 % 09/20/21 06:23 Eos % (Auto) 1.3 % 09/20/21 06:23 Baso % (Auto) 0.2 % 09/20/21 06:23 Neut # (Auto) 3.18 10^3/uL (1.8-7.7) 09/20/21 06:23 Lymph # (Auto) 2.3 10^3/uL (0.8-4.8) 09/20/21 06:23 [place] # (Auto) 0.4 10^3/uL (0.2-0.9) 09/20/21 06:23 Eos # (Auto) 0.1 10^3/uL (0.0-0.8) 09/20/21 06:23 Baso # (Auto) 0.0 10^3/uL (0.0-0.1) 09/20/21 06:23 Nucleated RBC % (auto) 0 % 09/20/21 06:23 Nucleated RBCs # 0.0 /100WBC 09/20/21 06:23 Sodium 142 mmol/L (136-145) 09/20/21 06:23 Potassium 3.9 mmol/L (3.5-5.1) 09/20/21 06:23 Chloride 107 mmol/L (98-107) 09/20/21 06:23 Carbon Dioxide 22 mmol/L (22-29) 09/20/21 06:23 Anion Gap 16.9 (5-19) 09/20/21 06:23 BUN 14 mg/dL (8-23) 09/20/21 06:23 Creatinine 0.5 mg/dL (0.5-0.9) 09/20/21 06:23 GFR Calculation 123.8 mL/min (90-130) 09/20/21 06:23 Glucose 92 mg/dL (65-115) 09/20/21 06:23 Calculated Osmolality 294 mOsm/kg (285-295) 09/20/21 06:23 Calcium 9.8 mg/dL (8.5-10.5) 09/20/21 06:23 Total Bilirubin 0.3 mg/dL (0.15-1.2) 09/20/21 06:23 AST 13 U/L (0-32) 09/20/21 06:23 ALT 11 U/L (0-33) 09/20/21 06:23 Alkaline Phosphatase 95 IU/L (35-105) 09/20/21 06:23 Total Protein 7.1 g/dL (6.6-8.7) 09/20/21 06:23 Albumin 4.1 g/dL (3.5-5.2) 09/20/21 06:23 Globulin 3.0 g/dL (1.3-4.6) 09/20/21 06:23 Urine Color Yellow (Yellow) 09/20/21 06:08 Urine Appearance Hazy (CLEAR) A 09/20/21 06:08 Urine pH 8 (5-7) H 09/20/21 06:08 Ur Specific [place] 1.015 (1.005-1.030) 09/20/21 06:08 Urine Protein Neg (Negative) 09/20/21 06:08 Urine Glucose (UA) Norm (Normal) 09/20/21 06:08 Urine Ketones Negative (Negative) 09/20/21 06:08 Urine Blood Neg (Negative) 09/20/21 06:08 Urine Nitrate Positive (Negative) H 09/20/21 06:08 Urine Bilirubin Neg (Negative) 09/20/21 06:08 Prot Sulfosalicylic Acd Negative (Negative) 09/20/21 06:08 Urine Urobilinogen Norm mg/dL (Negative) 09/20/21 06:08 Ur Leukocyte Esterase 1+ (Negative) H 09/20/21 06:08 Urine RBC None /hpf (0-2) 09/20/21 06:08 Urine WBC 10-15 /hpf (0-5) H 09/20/21 06:08 Ur Squamous Epith Cells 0-4 /hpf (0-5) H 09/20/21 06:08 Amorphous Sediment 1+ /hpf 09/20/21 06:08 Urine Bacteria 3+ /hpf (NONE) H 09/20/21 06:08 Blood Type O Positive 09/20/21 06:23 Rho(D) Type Positive 09/20/21 06:23 Antibody Screen Negative 09/20/21 06:23 Procedures Performed Anterior colporrhaphy augmented with allograft. Single incision mid urethral sling. Cystoscopy. Vitals Last Vital Signs Temp 98.4 F 09/21/21 11:23 Pulse 71 09/21/21 11:23 Resp 16 09/21/21 11:23 BP 170/71 09/21/21 11:23 Pulse Ox 98 09/21/21 11:23 Discharge Plan Discharge Patient Disposition: Home Condition: Stable Prescriptions: New hydrocodone-acetaminophen 5-325 mg tablet 1 tab PO Q4H PRN (Reason: pain) Qty: 10 0RF ibuprofen 800 mg tablet 800 mg PO TID PRN (Reason: pain) Qty: 60 0RF Continued acetaminophen [Tylenol] 325 mg capsule 325 mg PO QID PRN (Reason: Pain, Mild) 0RF Laxatives PO .every other day 0RF Move Free Ultra Faster Comfort 216 mg tablet PO DAILY 0RF Discharge Orders: Discharge Order (Routine); Ordered 09/21/21 Ordered By: Suhail Leach Referrals: Suhail Leach MD [Physician] - 10/03/21 8:00 am (Your 2 week post-op appointment is scheduled for 10/03/21 @8:00. Your 6 week post-op appointment is scheduled for 10/31/21 @8:00. ) Discharge Diet: Usual diet Discharge Activity: Limit activity as instructed Patient Instructions: Rectocele (GEN), Cystocele (DC), OB Discharge Report, OB Food/Drug Interaction Guide, Opioid Safety, Anterior Vaginal Repair (GEN), Bladder Sling (GEN) Activity Restrictions/Additional Instructions: 1. Please call [facility] on next working day to make your post-operative appointment in 2 weeks. 2. Please stay home until you come back to the clinic on first post-operative check up. 3. Please follow instructions on your medications CAREFULLY. 4. If you have abdominal incision, do not cover it unless dressing is necessary because of drainage. OK to shower, but avoid bath. Leave steri-strips until they fall off. If they are still on one week after surgery, you may remove them. 5. If you had vaginal surgery or vaginal repair, Dr. Leach may instruct you to take SITZ bath. 6. Yellow, blood tinged odorous vaginal discharge is usually normal after hysterectomy or vaginal surgeries. 7. No sexual intercourse, tampons, or douches until you are completely released from the post-operative care. 8. Avoid constipation by eating right and maybe using some Metamucil or Milk of Magnesia. 9. All prescription refills are given during the working hours. Please do no wait till it runs out. Call the clinic at [phone] before your medication runs out. The clinic will get in touch with your doctor to prescribe medications if necessary. 10. Please remain within 40 mile radius from our hospital because emergencies do happen now and then during the post-operative period. 11. If you have stairs at home, take one step at a time slowly and minimize the number of trips. It helps to stay in one floor for the next few days. No lifting except what you can lift by one hand until you are released from the post-operative care. 12. Driving is discouraged until you are well healed. It may be 3-4 weeks before you feel strong enough to drive. You should be able to turn and look through the rear window without pain and you should be able to push the brake pedal very hard without pain before you drive. No fast rules, but SAFETY should be your primary concern. DO NOT drive if you are on sedating medications such as narcotics. 13. Call the clinic (during working hours) to make urgent appointment or go to the Emergency room, if any of the following occurs: i. Vaginal bleeding becomes heavy, more than a period. ii. Incision becomes red and sore, or drains pus. iii. Your temperature is over 100.4 or you have chill. iv. IV site becomes red and swollen (a little ``knot?? is usually OK) v. Persistent nausea and vomiting vi. Persistent constipation or diarrhea vii. Rash or allergic reaction to medications. Discharge Attestations TRAP PULLER Time Spent in Discharge Care*: greater than 30 min Coding Level of Care Code Acute Direct Entry Midwife for Radhag Loi
== END 2021-09-21 11:47 | disposition home or self-care (01) ==
LOC: OBGYN 11:23
PROVIDERS: Admitting Provider Obstetrics & Gynecology; PCP Family Medicine; Visit Provider Obstetrics & Gynecology
PROC: 0JQC0ZZ Repair Pelvic Region Subcutaneous Tissue and Fascia, Open Approach (ICD-10-PCS; CPT 57240; 2021-09-20 07:00)
PROC: 0TJB8ZZ Inspection of Bladder, Via Natural or Artificial Opening Endoscopic (ICD-10-PCS; CPT 52000; 2021-09-20 07:00)
PROC: (CPT 57288; 2021-09-20 07:00)
DX: N81.10 Cystocele, unspecified (principal); N81.6 Rectocele; J44.9 Chronic obstructive pulmonary disease, unspecified; Z82.49 Family history of ischemic heart disease and other diseases of the circulatory system; Z83.3 Family history of diabetes mellitus; Z87.891 Personal history of nicotine dependence
CPT/HCPCS: 57240; 57267; 57288; 36415; 80053; 81001; 85025; 85027; 86850; 86900; 87077; 87086; 87186; 96365; C1713; C1762; G0378; J0330; J1100; J1200; J1885; J1956; J2370; J2405; J2704; J3010; J3370; J3490; J7040; J7050

== ENCOUNTER → 2021-10-03 08:07 | Outpatient (BNVA) | payer MEDICARE, SELFPAY | PROVIDERS: PCP Family Medicine; Visit Provider Obstetrics & Gynecology | DX: R35.0 Frequency of micturition (principal); Z48.816 Encounter for surgical aftercare following surgery on the genitourinary system | CPT/HCPCS: 81000 ==

== ENCOUNTER 2022-02-21 08:56 | Outpatient (CLI) | payer MEDICARE, SELFPAY ==
--- NOTE | 2022-02-21 09:09 | MM_ITS ---
WS: [id number] BILATERAL SCREENING DIGITAL BREAST TOMOSYNTHESIS MAMMOGRAM WITH CAD HISTORY: SCREENING COMPARISON: 06/27/2018 and 08/26/2017 Bilateral CC and MLO views with tomosynthesis and synthetic mammography submitted. Computer aided det ection analyzed. Breast composition: The breasts are heterogeneously dense, which may obscure small masses. No suspici ous masses, microcalcifications or architectural distortion. Benign calcifications and asymmetries ar e stable. MM/[place] [id number] IMPRESSION: BI-RADS: 2-Benign FOLLOW UP: 1 Year Follow-up
== END 2022-02-21 08:57 | disposition home or self-care (01) ==
PROVIDERS: PCP Family Medicine; Visit Provider Family Medicine
DX: Z12.31 Encounter for screening mammogram for malignant neoplasm of breast (principal)
CPT/HCPCS: 77063; 77067

== ENCOUNTER 2022-03-28 08:33 | Emergency (ER) | payer MEDICARE, SELFPAY ==
[2022-03-28] VITALS (11 sets, daily range): BP systolic 137–177; BP diastolic 76–92; PULSE 51–53; RESP 16–18; TEMP 36.8; O2SAT 91–98; BMI 23.3
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
[2022-03-28] MEDS: fentaNYL 50 mcg/mL INJ 2mL IVP ×2 (09:05→12:47)
[2022-03-28 10:00] LABS: Basophils % 0.1 %; Eosinophils # 0.1 10^3/uL (0.0-0.8); Eosinophils % 0.8 %; Hemoglobin 12.5 g/dL (11.5-15.3); Lymphocytes # 1.9 10^3/uL (0.8-4.8); Lymphocytes % 24.6 %; Mean Corpuscular HGB Conc 32.9 g/dL (30.0-36.0); Mean Corpuscular Hemoglobin 29.6 pg (28.0-34.0); Mean Platelet Volume 10.2 fL (7.4-10.4); Monocytes # 0.4 10^3/uL (0.2-0.9); Monocytes % 5.8 %; Neutrophils # 5.16 10^3/uL (1.8-7.7); Neutrophils % 67.9 %; Nucleated Red Blood Cells % 0 %; Platelet Count 192 10^3/cmm (130-400); Red Blood Count 4.22 10^6/uL (4.1-5.3); Red Cell Distribution Width 14.4 % (12.1-15.1); White Blood Count 7.6 10^3/uL (4.0-10.0)
[2022-03-28 10:21] LABS: Alanine Aminotransferase 29 U/L (0-33); Albumin Level 3.8 g/dL (3.5-5.2); Alkaline Phosphatase 72 IU/L (35-105); Aspartate Amino Transferase 41 U/L (0-32); Blood Urea Nitrogen 14 mg/dL (8-23); Calcium 9.2 mg/dL (8.5-10.5); Carbon Dioxide 26 mmol/L (22-29); Chloride 106 mmol/L (98-107); Globulin 2.4 g/dL (1.3-4.6); Glomerular Filtration Rate 100.3 mL/min (90-130); Glucose 107 mg/dL (65-115); Osmolality Calculated 291 mOsm/kg (285-295); Sodium 140 mmol/L (136-145); Total Bilirubin 0.3 mg/dL (0.15-1.2); Total Protein 6.2 g/dL (6.6-8.7)
== END 2022-03-28 12:16 ==
PROVIDERS: Emergency Provider Emergency Medicine; PCP Family Medicine
DX: S22.43XA Multiple fractures of ribs, bilateral, initial encounter for closed fracture (principal); S22.080A Wedge compression fracture of T11-T12 vertebra, initial encounter for closed fracture; Z85.41 Personal history of malignant neoplasm of cervix uteri; Z87.891 Personal history of nicotine dependence; V44.5XXA Car driver injured in collision with heavy transport vehicle or bus in traffic accident, initial encounter
CPT/HCPCS: 70450; 70486; 71260; 72125; 74177; 80053; 85025; 96374; 96375; 99285; J3010; Q9967

== ENCOUNTER → 2022-04-19 09:03 | Outpatient (BNVA) | payer MEDICARE, SELFPAY | PROVIDERS: PCP Family Medicine; Referring Provider Family Medicine; Visit Provider Physician Assistant | DX: S22.080A Wedge compression fracture of T11-T12 vertebra, initial encounter for closed fracture (principal); X58.XXXA Exposure to other specified factors, initial encounter; M47.814 Spondylosis without myelopathy or radiculopathy, thoracic region | CPT/HCPCS: 72072; 99203; 99204 ==

== ENCOUNTER 2022-06-06 10:09 | Day surgery (SDC) | payer MEDICARE, SELFPAY ==
[2022-06-06] VITALS (18 sets, daily range): BP systolic 104–169; BP diastolic 68–98; PULSE 70–105; RESP 10–22; TEMP 36.5–37; O2SAT 91–99; BMI 20.5
--- NOTE | 2022-06-06 | SCC_ITS ---
Procedure done: 1. Cystoscopy with right retrograde, ureteroscopy, stone manipulation, stent 22 seconds of fluoroscopic guidance, for a cumulative dose of 3.2 mGy, was provided to Dr. Salgado by the radiology department. C-arm images of the abdomen were saved for the patient's permanent record. [facility]
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
--- NOTE | 2022-06-06 11:38 | CT_ITS ---
WS: [id number] CT ABDOMEN PELVIS TECHNIQUE: Noncontrast CT of the abdomen and pelvis with coronal and sagittal reformatted images. CLINICAL INFORMATION: right flank pain COMPARISON: CT March 28, 2022 DLP: 370.[address] scans at [facility] use at least one of these dose optimization techniques: automated e xposure control; mA and/or kV adjustment per patient size (includes targeted exams where dose is matc hed to clinical indication); or iterative reconstruction. FINDINGS: 3.5 mm obstructing RIGHT UVJ calculus with moderate RIGHT hydronephrosis and ureterectasis. This is n ew since March 28, 2022. No hydronephrosis LEFT kidney. LEFT ureter is decompressed. Pelvic phleboliths. Lung bases are well a erated. Mild hepatomegaly. Normal spleen. Small esophageal hiatal hernia. Fatty atrophy of the pancre as. Normal gallbladder. Aortic calcification. Slightly aneurysmal abdominal aorta measuring 2.3 x 2.6 cm. Sigmoid diverticulosis. No evidence of acute diverticulitis. No high-grade small or large bowel obstruction. No free fluid in the pelvis. Chronic compression with anterior wedging T11. CT/CT abdomen pelvis wo con [id number] IMPRESSION: 1. 3.5 mm obstructing RIGHT UVJ calculus moderate RIGHT hydronephrosis and RIG HT hydroureter. 2. Small esophageal hiatal hernia. 3. Hydronephrosis LEFT kidney. 4. Slightly aneurysmal abdominal aorta measuring 2.3 x 2.6 cm. Notified Suhail Bob DO at 06/06/2022 12:38 PM.
[2022-06-06] MEDS: morphine 4 mg/mL SDV 1 mL IVP (12:01)
[2022-06-06 12:05] LABS: Basophils % 0.2 %; Eosinophils % 0.2 %; Hematocrit 41.8 % (37.0-47.0); Hemoglobin 14.1 g/dL (11.5-15.3); Lymphocytes # 1.7 10^3/uL (0.8-4.8); Lymphocytes % 14.9 %; Mean Corpuscular HGB Conc 33.7 g/dL (30.0-36.0); Mean Corpuscular Hemoglobin 29.9 pg (28.0-34.0); Mean Corpuscular Volume 88.6 fl (81-99); Mean Platelet Volume 9.8 fL (7.4-10.4); Monocytes # 0.7 10^3/uL (0.2-0.9); Monocytes % 6.4 %; Neutrophils # 9.01 10^3/uL (1.8-7.7); Neutrophils % 77.8 %; Nucleated Red Blood Cells % 0 %; Platelet Count 270 10^3/cmm (130-400); Red Blood Count 4.72 10^6/uL (4.1-5.3); Red Cell Distribution Width 13.7 % (12.1-15.1); White Blood Count 11.6 10^3/uL (4.0-10.0)
[2022-06-06 12:22] LABS: Urine Color Yellow (Yellow)
[2022-06-06 12:23] LABS: Bilirubin Urine Neg (Negative); Blood Urine 2+ (Negative); Glucose Urine UA Norm (Normal); Ketones Urine 1+ (Negative); Nitrate Urine Negative (Negative); Protein Urine Neg (Negative); Specific Gravity, Urine 1.015 (1.005-1.030); Urine Appearance Hazy (CLEAR); pH Urine 9 (5-7)
[2022-06-06 12:24] LABS: Sulfosalicylic Acid Urine Negative (Negative)
--- NOTE | 2022-06-06 12:25 | ECG_ITS ---
[facility] Test Date: 2022-06-06 Pat Name: Stefanie Chahal Department: Room: Gender: Female [employer]: : 1955 Requested By: Suhail Bob Order Number: [id number] Faisal MD: Mason Boone M.D. Measurements Intervals [place] Rate: 76 P: 54 SD: 132 QRS: 33 QRSD: 82 T: 7 QT: 383 QTc: 433 Interpretive Statements SINUS RHYTHM ST DEVIATION AND MODERATE T-WAVE ABNORMALITY, CONSIDER ANTERIOR ISCHEMIA [-0.1+ mV T-WAVE IN V3/V4] Compared to ECG 09/05/2015 12:21:52 Possible ischemia now present T-wave abnormality still present Electronically Signed On 06-06-2022 22:27:54 CDT by Mason Boone M.D. [id number]
[2022-06-06 12:29] LABS: Alanine Aminotransferase 16 U/L (0-33); Albumin Level 4.2 g/dL (3.5-5.2); Alkaline Phosphatase 111 U/L (35-105); Anion Gap 17.6 (5-19); Aspartate Amino Transferase 18 U/L (0-32); Blood Urea Nitrogen 16 mg/dL (8-23); Calcium 10.3 mg/dL (8.5-10.5); Carbon Dioxide 23 mmol/L (22-29); Chloride 98 mmol/L (98-107); Globulin 3.7 g/dL (1.3-4.6); Glomerular Filtration Rate 55.6 mL/min (90-130); Glucose 121 mg/dL (65-115); Lipase 24 U/L (13-60); Osmolality Calculated 280 mOsm/kg (285-295); Potassium 4.6 mmol/L (3.5-5.1); Sodium 134 mmol/L (136-145); Total Bilirubin 0.8 mg/dL (0.15-1.2); Total Protein 7.9 g/dL (6.6-8.7)
[2022-06-06 12:30] LABS: Add Urine Microscopic? YES; Leukocyte Esterase Urine 1+ (Negative); Urobilinogen Urine Norm (Negative)
[2022-06-06 12:31] LABS: Add Urine Culture? No; Bacteria Urine TRACE /hpf; Squamous Epithelial Cell Urine 0-4 /hpf (0-5)
[2022-06-06 12:51] LABS: Troponin T (5th) Once 8 ng/L (0-10)
--- NOTE | 2022-06-06 14:03 | P.HP_ITS ---
Providers/Chief Complaint Admitting Physician: Urology/Salgado Primary Care Provider: María Saravia MD Chief Complaint: n/v/abd pain Refractory right distal ureteral stone with obstruction History of Present Illness Stefanie Chahal is a 66 year old female who I evaluated for the first time today at the request of Dr. Bob in the emergency department for about a 3- week history of intermittent right renal colicky symptoms. Today her symptoms became much worse after progressing for about the last 10 days. Symptoms have included severe right flank pain of renal colic in nature, nausea and vomiting which was severe and refractory. No evidence of infection on UTI. Her creatinine has bumped up though from a baseline of 0.6-1.0. CT scan demonstrated severe right hydroureteronephrosis all the way down to a 3 mm stone in the right distal ureter near the UVJ. There appeared to be some inflammatory changes around the stone Based on the fact that her symptoms have been very difficult to control, she has had this stone for least 3 weeks, she has significant hydroureteronephrosis she has elected to proceed with intervention. There is no obvious contraindications. Plan for: Cystoscopy, RIGHT: Retrograde, ureteroscopy, laser, stent. Reviewed at times staged procedures with stenting first due to inability to access the stone safely with the scope and also reviewed the possibility of requiring antegrade approach via percutaneous nephrostomy if the wire could not be manipulated beyond the stone. I quoted a less than 1% chance at that given the fact that her stone has been in that location for a while there is probably a higher chance than that overall. Discussed stent symptoms. Perioperative limitations and expectations reviewed. Informed consent was obtained for the above procedure. Review of Systems Const: Denies: fever(s), chills or change in appetite Eyes: Denies: eye discharge or yellow eyes ENMT: Denies: throat pain or hoarseness Card: Denies: chest pain, palpitations or edema Resp: Denies: dyspnea, productive cough or wheezing GI: Reports: abdominal pain, nausea and vomiting; Denies: hematochezia : Reports: flank pain Musc: Denies: neck pain or back pain Skin/Breast: Denies: rash or pruritus Neuro: Denies: headache(s), confusion or Slurred speech present Psych: Denies: anxiety or depression Endo: Denies: polyuria or polydipsia Yohannes/Lymph: Denies: easy bruising or easy bleeding All/Imm: Denies: acute wheezing or itchy eyes Medications/Allergies Home Medications Medication Instructions Recorded Confirmed Last Taken Type calcium fructoborate 216 mg tablet 216 mg PO DAILY 03/03/21 06/06/22 06/05/22 History (Move Free Ultra Faster Comfort) citalopram 10 mg tablet 10 mg PO DAILY 30 days #30 tabs 03/14/22 06/06/22 06/05/22 Rx celecoxib 100 mg capsule (Celebrex) 100 mg PO BID #60 caps 03/20/22 06/06/22 06/05/22 Rx hydrocodone 5 mg-acetaminophen 325 1 - 2 tab PO .Q4-6 PRN pain 5 days 04/19/22 06/06/22 06/06/22 Rx mg tablet #30 tabs buspirone 10 mg tablet 10 mg PO BID PRN anxiety/panic 30 05/27/22 06/06/22 Unknown Rx days #60 tabs propranolol 60 mg capsule,24 60 mg PO DAILY 06/06/22 06/06/22 06/06/22 History hr,extended release Allergies Allergy/AdvReac Type Severity Reaction Status Date / Time metronidazole [From Flagyl] Allergy ALGY-Hives Verified 06/06/22 11:38 Penicillins AdvReac Severe Hives Verified 06/06/22 11:38 Sulfa (Sulfonamide AdvReac Intermediate Itch & rash Verified 06/06/22 11:38 Antibiotics) PFSH PFSH: Medical History Aftercare following surgery of the genitourinary system Female bladder prolapse History of chronic urinary tract infection Hx of cervical cancer Urgency of urination Urinary tract infection Surgical History H/O section 1984- distress H/O of anterior colporrhaphy 09/20/2021- anterior colporrhaphy augmented with allograft, single incision mid urethral sling and cystoscopy performed by Dr. Leach at [facility] H/O: hysterectomy History of laparotomy 01/09/1999- laparotomy with BSO and extensive adhesiolysis, nunez urethropexy, Performed by Dr. Gomez at [facility] in [place], [place]. History of left oophorectomy 1982- partial left oophorectomy, Benign tumor of the ovary. Hx of hysterectomy S/P appendectomy 01/09/1999-Performed at time of Laparotomy with BSO and adhesiolysis. Performed by Dr. Gomez at [facility] in [place], [place]. S/P conization of cervix 1981- precancer of cervix S/P tonsillectomy 1974 Family History Father Hyperlipidemia Hypertension Diabetes Heart disease Mother Cancer unknown source Denies family history of Colon cancer Ovarian cancer Ovarian cyst Chronic kidney disease (CKD) Breast cancer Bleeding disorder Uterine cancer Thyroid disease Stroke Social History Smoking and tobacco status: never smoked Alcohol intake: never Female Reproductive History: Date of last menstrual period: 11/10/20 Spontaneous abortions: No Dietary Habits: Caffeine: Yes Caffeine intake frequency: coffee Vital Signs Vitals Signs: Last Vital Signs Temp 97.7 F 06/06/22 10:37 Pulse 70 06/06/22 12:35 Resp 15 06/06/22 12:35 BP 112/76 06/06/22 12:35 Pulse Ox 93 06/06/22 12:35 O2 Del Method 06/06/22 12:35 Weight: Weight last 48 hrs Weight 120 lb Physical Exam Const: COMMON NORMALS: no acute distress, alert and well nourished GENERAL APPEARANCE: well kempt and well developed ORIENTATION/CONSCIOUSNESS: not confused HENMT: COMMON NORMALS: normocephalic HEAD & SCALP: normal to inspection and normocephalic Eye: COMMON NORMALS: conjunctivae normal and no scleral icterus CONJUNCTIVA: Yes conjunctivae normal Neck/C-Spine: GENERAL: Yes normal visual inspection Lymph: LYMPHATIC: no lymphadenopathy noted and no lymphedema noted Resp: COMMON NORMALS: normal respiratory effort EFFORT & INSPECTION: Yes able to speak in complete sentences, No labored and No Actively coughing AUSCULTATION: clear to auscultation bilaterally Cardio: COMMON NORMALS: regular rate and regular rhythm RATE: regular rate RHYTHM: regular rhythm GI: OTHER: Right-sided abdominal tenderness. Nonsurgical abdomen : OTHER: Bladder nondistended. Right CVA tenderness Normal external female genitalia Extremity: COMMON NORMALS: no clubbing, cyanosis or edema Neuro: COMMON NORMALS: no focal motor deficits SENSORIUM/ORIENTATION: Yes alert Psych: COMMON NORMALS: mental status grossly normal APPEARANCE: Yes grossly normal and Yes well kempt ATTITUDE: Yes calm and Yes engaged Skin: COMMON NORMALS: no rashes or lesions noted and no jaundice GENERAL SKIN EXAM: no rashes or lesions noted Data : 06/06/22 11:55 06/06/22 11:55 A&P Assessment and plan (1) Right ureteral calculus: See HPI (2) Renal colic on right side: (3) Hydronephrosis of right kidney: Secondary to small right distal/UVJ stone. Obstruction ongoing for about 3 weeks clinically Plan To the operating room urgently for the above procedures. Coding Level of Care Code Acute Associate Software Engineer for [employer] Diagnoses Right ureteral calculus N20.1 Renal colic on right side N23 Hydronephrosis of right kidney N13.30
--- NOTE | 2022-06-06 14:09 | SC_ITS ---
WS: [id number] INTRAOPERATIVE TECHNIQUE: 3 Spot fluoroscopic images for intraoperative purposes. FLUOROSCOPY TIME: 21.5 seconds CLINICAL INFORMATION: Right ureteroscopy COMPARISON: CT June 06, 2022 FINDINGS: RIGHT ureteroscopy. Obstructing calculus in the RIGHT distal ureter. Double-J ureteral stent deployme nt. SC/C-arm FL for Urology IMPRESSION: Images obtained for intraoperative purposes.
--- NOTE | 2022-06-06 14:10 | PC.NURSE ---
BS 128
--- NOTE | 2022-06-06 14:11 | PC.NURSE ---
Patient take ot pre-op at this time
[2022-06-06 14:12] LABS: Glucose Point of Care 122 mg/dL (70-110)
--- NOTE | 2022-06-06 14:29 | ANES.PREANE2 ---
Pre-Anesthetic Assessment Height/Weight: Height 1.63 m Weight 54.431 kg Temp Pulse Resp BP Pulse Ox O2 Del Method 97.7 F 77 15 112/76 95 06/06/22 10:37 06/06/22 14:10 06/06/22 14:10 06/06/22 14:10 06/06/22 14:10 06/06/22 14:10 Preop Diagnosis: Rectocele, Cystocele, Vaginal vault prolapse Operation Date: 06/06/22 14:30 Proposed Procedures p Cystoscopy(Not Applicable) - Dane Salgado MD s Retrograde Pyelogram(Right) - Dane Salgado MD s Ureteroscopy(Right) - MD baljinder Myers Laser Lithotripsy(Right) - Dane Salgado MD s Ureteral Stent Placement(Right) - Dane Salgado MD Familial anesthetic complications: none Was Beta Mahendra taken within 24 hours: N/A Was Clonidine taken within 24 hours: N/A Last intake: > 8 hrs Social Tobacco and No alcohol Exam alert, oriented x 3, clear to auscultation bilaterally and regular rate & rhythm Airway Mallampati: Class II Dentition: false Pulmonary Chronic Obstructive Pulmonary Disease [facility] Lower Back Pain Anesthetic Plan ASA status: 2 Anesthesia: General Risk of > 500 ml blood loss (7ml/kg in children): No Medications/Allergies Home Medications Medication Instructions Recorded Confirmed Last Taken Type calcium fructoborate 216 mg tablet 216 mg PO DAILY 03/03/21 06/06/22 06/05/22 History (Move Free Ultra Faster Comfort) citalopram 10 mg tablet 10 mg PO DAILY 30 days #30 tabs 03/14/22 06/06/22 06/05/22 Rx celecoxib 100 mg capsule (Celebrex) 100 mg PO BID #60 caps 03/20/22 06/06/22 06/05/22 Rx hydrocodone 5 mg-acetaminophen 325 1 - 2 tab PO .Q4-6 PRN pain 5 days 04/19/22 06/06/22 06/06/22 Rx mg tablet #30 tabs buspirone 10 mg tablet 10 mg PO BID PRN anxiety/panic 30 05/27/22 06/06/22 Unknown Rx days #60 tabs propranolol 60 mg capsule,24 60 mg PO DAILY 06/06/22 06/06/22 06/06/22 History hr,extended release Allergies Allergy/AdvReac Type Severity Reaction Status Date / Time metronidazole [From Flagyl] Allergy ALGY-Hives Verified 06/06/22 11:38 Penicillins AdvReac Severe Hives Verified 06/06/22 11:38 Sulfa (Sulfonamide AdvReac Intermediate Itch & rash Verified 06/06/22 11:38 Antibiotics) [facility] Anesthesia Medical History Aftercare following surgery of the genitourinary system Female bladder prolapse History of chronic urinary tract infection Hx of cervical cancer Urgency of urination Urinary tract infection Surgical History H/O section 1984- distress H/O of anterior colporrhaphy 09/20/2021- anterior colporrhaphy augmented with allograft, single incision mid urethral sling and cystoscopy performed by Dr. Leach at [facility] H/O: hysterectomy History of laparotomy 01/09/1999- laparotomy with BSO and extensive adhesiolysis, nunez urethropexy, Performed by Dr. Gomez at [facility] in [place], [place]. History of left oophorectomy 1982- partial left oophorectomy, Benign tumor of the ovary. Hx of hysterectomy S/P appendectomy 01/09/1999-Performed at time of Laparotomy with BSO and adhesiolysis. Performed by Dr. Gomez at [facility] in [place], [place]. S/P conization of cervix 1981- precancer of cervix S/P tonsillectomy 1974 Family History Father Hyperlipidemia Hypertension Diabetes Heart disease Mother Cancer unknown source Denies family history of Colon cancer Ovarian cancer Ovarian cyst Chronic kidney disease (CKD) Breast cancer Bleeding disorder Uterine cancer Thyroid disease Stroke Social History Smoking and tobacco status: never smoked Alcohol intake: never Female Reproductive History Date of last menstrual period: 11/10/20 Spontaneous abortions: No Data Anesthesia : 06/06/22 11:55 06/06/22 11:55 Short CBC 06/06/22 Range/Units 11:55 WBC 11.6 H (4.0-10.0) 10^3/uL Hgb 14.1 (11.5-15.3) g/dL Hct 41.8 (37.0-47.0) % MCV 88.6 (81-99) fl Plt Count 270 (130-400) 10^3/cmm Neut % (Auto) 77.8 % Neut # (Auto) 9.01 H (1.8-7.7) 10^3/uL BMP 06/06/22 11:55 Sodium 134 L Potassium 4.6 Chloride 98 Carbon Dioxide 23 BUN 16 Creatinine 1.0 H Glucose 121 H Calcium 10.3 Cardiac Enzymes 06/06/22 Range/Units 11:55 Troponin T Gen 5 ng/L 8 (0-10) ng/L Liver Function 06/06/22 Range/Units 11:55 Total Bilirubin 0.8 (0.15-1.2) mg/dL AST 18 (0-32) U/L ALT 16 (0-33) U/L Alkaline Phosphatase 111 H (35-105) U/L Albumin 4.2 (3.5-5.2) g/dL Urine 06/06/22 Range/Units 11:59 Urine Color Yellow (Yellow) Urine Appearance Hazy A (CLEAR) Urine pH 9 H (5-7) Ur Specific [place] 1.015 (1.005-1.030) Urine Protein Neg (Negative) Urine Glucose (UA) Norm (Normal) Urine Ketones 1+ H (Negative) Urine Nitrate Negative (Negative) Urine Bilirubin Neg (Negative) Ur Leukocyte Esterase 1+ H (Negative) Urine RBC 5-10 H (0-2) /hpf Urine WBC 5-10 H (0-5) /hpf Cardiac Studies: No Data to Display
[2022-06-06] MEDS: sodium chloride 0.9% 1,000 ML 30 ML IV (14:40)
[2022-06-06] MEDS: levofloxacin-dextrose 5 % 500 MG/100 ML PREMIX 100 MG IV (15:10)
--- NOTE | 2022-06-06 15:11 | P.OP_ITS ---
Operative Report Date of procedure: June 06, 2022 Pre-op diagnosis: Right distal ureteral stone with severe obstruction and refractory symptoms Post-op diagnosis: Right distal ureteral stone with severe obstruction and refractory symptoms Procedure done: 1. Cystoscopy with right retrograde, ureteroscopy, stone manipulation, stent Implants: 6 [place] by 24 cm double-pigtail without string. Specimens removed/disposition: Stone Pathology: Stone Surgeon: Naomi Estimated blood loss: None Urine output: Not measured Complications: None Findings: Anesthesia: General Condition: Stable Disposition: PACU Intraoperative findings: * Stone in the expected position. A lot of distal ureteral edema related to the lodging site. * Indwelling ureteral stent at completion of procedure Brief History: Ms. Chahal is a very pleasant 66-year-old white female who I evaluated for the first time today at the request to the emergency department for about a 3- week history of intermittent severe right renal colicky symptoms with associated nausea and vomiting but no evidence of infection. CT scan which I did review demonstrated a 3 mm right UVJ stone with severe obstructive changes. Degree of hydronephrosis with that the timeline. Surprising that the stone had not passed by this time. Based on that finding it was recommended to consider intervention as opposed to further conservative management and ultimately we elected endoscopic treatment. We discussed definitive treatment of the stone, staged approach with stent only due to poor access versus antegrade approach with stent placement percutaneous nephrostomy etc. if access cannot be obtained from below Procedure: After routine preoperative evaluation examination and obtaining of informed consent she was taken to the operating suite urgently on 06/06/2022 where general anesthesia was administered without difficulty after appropriate timeout was performed, SCDs confirmed to be functioning, preoperative antibiotics administered, beta-james protocol confirmed. Prepped and draped in usual sterile fashion in dorsolithotomy position paying careful attention to voiding pressure points. 21 [place] cystoscope with 30 degree lens was introduced into the urethra meatus and advanced into the bladder under videoscopy. Bladder was systematically examined. No stones were seen. The right ureteral orifice was inflamed relative to the left. An 8 [place] cone-tip catheter was intubated to the RIGHT ureteral orifice and a right retrograde ureteropyelogram was performed demonstrating: Narrowing of the very distal ureter, filling defect consistent with a stone as seen on CT scan, marked dilation of the ureter proximal to that point. A flexible tip guidewire was easily advanced up the right ureter bypassing the stone curling in the area of the upper pole calyx. The distal ureter was then dilated with a 15 [place] 4 cm balloon with 4 donald of pressure with no waist. The wire was secured to the drapes as a safety wire and a 7 [place] offset semirigid ureteroscope was advanced up the right ureter next to the safety wire and the stone was encountered in its expected position and removed with try grasping forceps without difficulty. Stone fragmented into 2 pieces. No additional stones were seen with passage of the scope. The ureter did show significant dilation proximal to the stones previous location. There was a lot of inflammation at the site where the stone had been lodged. It was decided to leave the stent in place. Cystoscope was then backloaded over the guidewire and a 6 [place] by 24 cm double-pigtail stent was advanced over the guidewire through the cystoscope into appropriate position as confirmed via fluoroscopy and cystoscopy. Stent was confirmed to be draining. Bladder was drained and the procedure was completed. She tolerated procedure well without complications and was awakened in the operating room and returned to the PACU in stable condition. PLANS: 1. Anticipate discharge from outpatient surgery 2. Follow-up in about 10 days to 2 weeks for cystoscopy and stent removal
[2022-06-06] MEDS: iohexol 300 mg/mL 50 mL Btl (OR ONLY) XX (15:50)
[2022-06-06] MEDS: ondansetron 2 mg/ML SDV 2 mL 4 MG IVP ×2 (16:33→17:21)
--- NOTE | 2022-06-06 17:21 | SUR.PHASEII ---
medicated for nausea.
--- NOTE | 2022-06-06 19:11 | ANE.PACU2 ---
Inpatient post-anesthesia follow up: Airway intact: Yes Vital signs: Temperature 97.9 F Pulse Rate 94 Respiratory Rate 16 Blood Pressure 123/98 Pulse Oximetry 95 Oxygen Delivery Me thod Room Air Oxygen Flow Rate Fraction of Inspir ed Oxygen Hydration adequate: Yes Nausea and vomiting: No Pain level: 1 Mental status: Baseline
[2022-06-12 10:08] LABS: Stone Source RIGHT URETERAL STONE
== END 2022-06-06 17:40 | disposition home or self-care (01) ==
LOC: ER 14:38 → OR 15:21
PROVIDERS: Emergency Provider Emergency Medicine; PCP Family Medicine; Visit Provider Urology
PROC: 0TJB8ZZ Inspection of Bladder, Via Natural or Artificial Opening Endoscopic (ICD-10-PCS; CPT 52000; principal; 2022-06-06 14:30)
PROC: (CPT 74420; 2022-06-06 14:30)
PROC: 0TJ98ZZ Inspection of Ureter, Via Natural or Artificial Opening Endoscopic (ICD-10-PCS; CPT 52351; 2022-06-06 14:30)
PROC: (CPT 50605; 2022-06-06 14:30)
DX: N20.1 Calculus of ureter (principal); N23 Unspecified renal colic; N13.30 Unspecified hydronephrosis; J44.9 Chronic obstructive pulmonary disease, unspecified; Z85.41 Personal history of malignant neoplasm of cervix uteri
CPT/HCPCS: 52332; 52352; 36416; 71045; 74176; 76000; 80053; 81001; 82365; 82962; 83690; 84484; 85025; 88300; 93005; C2625; J1100; J1956; J2270; J2370; J2405; J2704; J3010; J3490; J7030

== ENCOUNTER → 2022-06-20 15:49 | Outpatient (BNVA) | payer MEDICARE, SELFPAY | PROVIDERS: PCP Family Medicine; Visit Provider Urology | DX: N20.9 Urinary calculus, unspecified (principal); Z96.0 Presence of urogenital implants | CPT/HCPCS: 52310; 81003; 99212 ==

== ENCOUNTER 2022-07-10 11:20 | Outpatient (CLI) | payer MEDICARE, SELFPAY ==
--- NOTE | 2022-07-10 11:45 | MR_ITS ---
WS: [id number] MRI THORACIC SPINE WITHOUT CONTRAST TECHNIQUE: Sagittal T1, T2 and STIR imaging. Axial T2 imaging. Noncontrast imaging obtained. CLINICAL INFORMATION: T-11 fracture COMPARISON: None. FINDINGS: Counting performed from the craniocervical junction Mild thoracic curve. Moderate thoracic kyphosis. Mild compression T12 vertebral body superior endplat es with anterior wedging. Loss of approximately 20% vertebral body height. No significant retropulsio n. Edema in the superior endplate consistent with recent acute compression. No other acute appearing compression fractures. Slight retrolisthesis L1 on L2. Small central protrusions in the mid thoracic spine worse at T7-T8, T8-T9, T9-T10. Slight indentation on the thoracic cord at T9-T10 with mild central canal stenosis. Cord signal appears normal. Moderat e facet arthropathy in the lower thoracic spine. Ectatic ascending thoracic aorta measuring 3.4 CCM. Normal caliber descending thoracic aorta. Adrenal glands are normal. MR/MR thoracic spin wo con* [id number] IMPRESSION: Counting performed from the craniocervical junction. 1. Recent compression of the T12 vertebral body with loss of approximately 20% vertebral body height with edema in the superior endplate. No significant retr opulsion. 2. No other acute compression fractures. 3. Small central protrusions in the mid thoracic spine worse at T9-T10 with sl ight indentation on the thoracic cord and mild central canal stenosis. 4. Moderate facet arthropathy lower thoracic spine. 5. Ectatic ascending thoracic aorta measuring 3.4 cm.
== END 2022-07-10 11:21 | disposition home or self-care (01) ==
LOC: RAD 11:22
PROVIDERS: PCP Family Medicine; Visit Provider Physician Assistant
DX: S22.089A Unspecified fracture of T11-T12 vertebra, initial encounter for closed fracture (principal); X58.XXXA Exposure to other specified factors, initial encounter; M51.24 Other intervertebral disc displacement, thoracic region
CPT/HCPCS: 72146

== ENCOUNTER → 2022-07-17 09:37 | Outpatient (BNVA) | payer MEDICARE, SELFPAY | PROVIDERS: PCP Family Medicine; Visit Provider Orthopaedic Surgery | DX: S22.080D Wedge compression fracture of T11-T12 vertebra, subsequent encounter for fracture with routine healing (principal); V89.2XXD Person injured in unspecified motor-vehicle accident, traffic, subsequent encounter | CPT/HCPCS: 99213 ==

== ENCOUNTER 2023-01-03 11:51 | Outpatient (CLI) | payer MEDICARE, SELFPAY ==
--- NOTE | 2023-01-03 12:09 | XR_ITS ---
WS: [id number] KUB, AP view, 01/03/2023 Clinical Data: stones Comparison: None. Findings: No abnormal intraabdominal masses or calcifications are seen. There is no dilatated small bowel or ev idence of obstruction. There are surgical clips in the pelvis at the level of the superior pubic rami. XR/XR KUB [id number] Impression: Negative KUB.
== END 2023-01-03 11:52 | disposition home or self-care (01) ==
LOC: RAD 11:55
PROVIDERS: PCP Family Medicine; Visit Provider Urology
DX: N13.2 Hydronephrosis with renal and ureteral calculous obstruction (principal); Z87.891 Personal history of nicotine dependence; Z87.440 Personal history of urinary (tract) infections; Z98.890 Other specified postprocedural states
CPT/HCPCS: 74018; 81003; 99213

== ENCOUNTER 2023-11-13 07:43 | Outpatient (CLI) | payer MEDICARE, SELFPAY ==
--- NOTE | 2023-11-13 08:01 | MM_ITS ---
WS: [id number] BILATERAL SCREENING DIGITAL TOMOSYNTHESIS MAMMOGRAM WITH CAD HISTORY: SCREEN COMPARISON: 02/21/2022, 06/27/2018 and 12/09/2013 Bilateral CC and MLO views with tomosynthesis and synthetic mammography submitted. Computer aided det ection analyzed. Breast composition: The breasts are heterogeneously dense, which may obscure small masses. No suspici ous masses, microcalcifications or architectural distortion. Numerous scattered asymmetries and calci fications within each breast. Stable over multiple prior studies. IMPRESSION: MM/[place] [id number] BI-RADS: 2-Benign FOLLOW UP: 1 Year Follow-up
== END 2023-11-13 07:44 | disposition home or self-care (01) ==
LOC: RAD 07:43
PROVIDERS: PCP Family Medicine; Visit Provider Family Medicine
DX: Z12.31 Encounter for screening mammogram for malignant neoplasm of breast (principal)
CPT/HCPCS: 77063; 77067

== ENCOUNTER 2023-11-21 09:37 | Emergency (ER) | payer MEDICARE, SELFPAY ==
[2023-11-21] VITALS (8 sets, daily range): BP systolic 155–209; BP diastolic 89–105; PULSE 55–87; RESP 13–26; TEMP 36.7; O2SAT 95–99; BMI 22.3
--- NOTE | 2023-11-21 09:52 | ECG_ITS ---
[facility] Test Date: 2023-11-21 Pat Name: Stefanie Chahal Department: Room: Gender: Female [employer]: : 1955 Requested By: Lance Dowling Order Number: [id number] Faisal MD: Mason Boone M.D. Measurements Intervals [place] Rate: 58 P: 146 RI: 139 QRS: 80 QRSD: 86 T: 42 QT: 426 QTc: 419 Interpretive Statements ECTOPIC ATRIAL BRADYCARDIA POSSIBLE LEFT ATRIAL ENLARGEMENT [-0.1mV P-WAVE IN V1/V2] NONSPECIFIC T-WAVE ABNORMALITY ABNORMAL RHYTHM ECG INTERPRETATION BASED ON A DEFAULT AGE OF 40 YEARS Compared to ECG 06/06/2022 12:25:01 Bradycardia, nonsinus now present Sinus rhythm no longer present Possible ischemia no longer present T-wave abnormality still present Electronically Signed On 11-21-2023 14:02:56 CDT by Mason Boone M.D. [id number]
--- NOTE | 2023-11-21 09:57 | W.ED.HA ---
HPI - Headache General: Chief Complaint: Headache Stated Complaint: headache, N/V, high bp Time Seen by Provider: 11/21/23 09:46 Source: patient Mode of arrival: ambulatory History of Present Illness: 68-year-old female presents to the emergency room with sudden onset of severe left adventist pain with headache with with significant nausea some mild scotoma. Headache is persistent. This happened suddenly while she was driving. No recent head trauma she did very nauseous but has not vomited. She has not had episodes like it is in the past she is not on any anticoagulants does not use any NSAIDs or antiplatelet therapy regularly. Onset description: suddenly Location: left, frontal and temporal Severity: severe Exacerbating factors: none Relieving factors: nothing Associated symptoms: Reports nausea and vomiting; Deny chest pain, confusion, cough, diaphoresis, eye pain, eye redness, fever(s), lightheadedness, loss of vision, malaise, neck stiffness, numbness, paresthesias, photophobia, pre-syncope, rash, seizures, short of breath, sound sensitivity, syncope or weakness Treatments prior to arrival: none Review of Systems Const: Denies: fever(s), chills, malaise or diaphoresis Card: Denies: chest pain, lightheadedness, syncope or pre-syncope Resp: Denies: dyspnea GI: Reports: nausea and vomiting; Denies: abdominal pain : Denies: dysuria, urinary frequency or urinary urgency Musc: Denies: neck pain or back pain Skin/Breast: Denies: rash Neuro: Reports: headache(s); Denies: confusion [facility] ED PFSH: Medical History Urolithiasis Aftercare following surgery of the genitourinary system Female bladder prolapse History of chronic urinary tract infection Urgency of urination Hx of cervical cancer Urinary tract infection Surgical History History of ureteroscopy 3 mm right distal ureteral stone extracted with temporary stent May 2022. Severe hydronephrosis associated. H/O of anterior colporrhaphy 09/20/2021- anterior colporrhaphy augmented with allograft, single incision mid urethral sling and cystoscopy performed by Dr. Leach at [facility] S/P tonsillectomy 1975 History of laparotomy 01/09/1999- laparotomy with BSO and extensive adhesiolysis, nunez urethropexy, Performed by Dr. Gomez at [facility] in [place], [place]. S/P appendectomy 01/09/1999-Performed at time of Laparotomy with BSO and adhesiolysis. Performed by Dr. Gomez at [facility] in [place], [place]. H/O: hysterectomy History of left oophorectomy 1982- partial left oophorectomy, Benign tumor of the ovary. H/O section 1984- distress S/P conization of cervix 1981- precancer of cervix Hx of hysterectomy Family History Father , AT AGE 72 Hyperlipidemia Hypertension Diabetes Heart disease Mother , AT AGE 54 Cancer unknown source Denies family history of Colon cancer Ovarian cancer Ovarian cyst Chronic kidney disease (CKD) Breast cancer Bleeding disorder Uterine cancer Thyroid disease Stroke Social History Smoking and tobacco/nicotine status: former use of tobacco/nicotine Alcohol intake: never Substance/Drug Use: never Marital status: Current occupational status: retired Female Reproductive History: Spontaneous abortions: No Physical Exam Const: COMMON NORMALS: no acute distress GENERAL APPEARANCE: cooperative and comfortable ORIENTATION/CONSCIOUSNESS: Yes awake, Yes oriented to person, Yes oriented to place and Yes oriented to time HENMT: COMMON NORMALS: normocephalic, atraumatic and hearing grossly normal bilaterally HEAD & SCALP: normocephalic and atraumatic Eye: DIRECT OPHTHALMOSCOPY: No photophobia Resp: COMMON NORMALS: normal respiratory effort, No retractions, No use of accessory muscles and clear to auscultation bilaterally AUSCULTATION: clear to auscultation bilaterally Cardio: COMMON NORMALS: regular rate, regular rhythm and No murmurs present (Cardio) RATE: regular rate RHYTHM: regular rhythm GI: COMMON NORMALS: Soft to palpation and No hepatosplenomegaly present AUSCULTATION: Yes normoactive bowel sounds PALPATION: Yes Soft to palpation, No Tenderness to palpation present (GI), No Guarding due to palpation present (GI) and Yes No hepatosplenomegaly present Extremity: COMMON NORMALS: normal to inspection, capillary refill normal, no clubbing, cyanosis or edema, no calf tenderness and no pedal edema Neuro: SENSORIUM/ORIENTATION: Yes oriented to person, Yes oriented to place and Yes oriented to time Skin: COMMON NORMALS: no rashes or lesions noted GENERAL SKIN EXAM: no rashes or lesions noted Course Vital Signs: Vital signs: Vital Signs Temperature 98.1 F 11/21/23 09:49 Pulse Rate 64 11/21/23 14:18 Respiratory Rate 13 11/21/23 14:18 Blood Pressure 161/97 11/21/23 14:18 Pulse Oximetry 97 11/21/23 14:18 Oxygen Delivery Me thod Room Air 11/21/23 09:49 MDM - Headache Medical Decision Making Blood pressure markedly elevated when she arrived blood pressure improved with medications after which the headache persisted CT initially showed question of an occlusion of the left middle cerebral artery per radiology they recommended CTA of the head CTA of the head and neck did not show any occlusion. Headache improved with morphine. Patient is feeling somewhat better. Headache is resolved. Encouraged her to continue her current medications lisinopril and propranolol add amlodipine 2.5 mg daily. Medical Records I reviewed the patient's medical records. Lab Data I reviewed the patient's lab results. 11/21/23 09:53 11/21/23 09:53 Laboratory Results WBC 5.60 10^3/uL (3.29-11.43) 11/21/23 09:53 RBC 5.02 10^6/uL (3.85-5.65) 11/21/23 09:53 Hgb 14.80 g/dL (11.27-16.99) 11/21/23 09:53 Hct 44.6 % (36-47) 11/21/23 09:53 MCV 88.8 fl (85-98) 11/21/23 09:53 MCH 29.5 pg (27-33) 11/21/23 09:53 MCHC 33.2 g/dL (30-55) 11/21/23 09:53 RDW 14.2 % (12.1-15.1) 11/21/23 09:53 Plt Count 197 10^3/cmm (157-399) 11/21/23 09:53 MPV 10.2 fL (7.4-10.4) 11/21/23 09:53 Neut % (Auto) 40.6 % 11/21/23 09:53 Lymph % (Auto) 48.8 % 11/21/23 09:53 [place] % (Auto) 8.8 % 11/21/23 09:53 Eos % (Auto) 1.4 % 11/21/23 09:53 Baso % (Auto) 0.2 % 11/21/23 09:53 Neut # (Auto) 2.28 10^3/uL (1.8-7.7) 11/21/23 09:53 Lymph # (Auto) 2.7 10^3/uL (0.8-4.8) 11/21/23 09:53 [place] # (Auto) 0.5 10^3/uL (0.2-0.9) 11/21/23 09:53 Eos # (Auto) 0.1 10^3/uL (0.0-0.8) 11/21/23 09:53 Baso # (Auto) 0.0 10^3/uL (0.0-0.1) 11/21/23 09:53 Nucleated RBC % (auto) 0 % 11/21/23 09:53 Nucleated RBCs # 0.0 /100WBC 11/21/23 09:53 Sodium 137 mmol/L (136-145) 11/21/23 09:53 Potassium 4.0 mmol/L (3.5-5.1) 11/21/23 09:53 Chloride 102 mmol/L (98-107) 11/21/23 09:53 Carbon Dioxide 23 mmol/L (22-29) 11/21/23 09:53 Anion Gap 16.0 (5-19) 11/21/23 09:53 BUN 16 mg/dL (8-23) 11/21/23 09:53 Creatinine 0.7 mg/dL (0.5-0.9) 11/21/23 09:53 GFR Calculation 83.5 mL/min (90-130) L 11/21/23 09:53 Glucose 93 mg/dL (65-115) 11/21/23 09:53 Calculated Osmolality 285 mOsm/kg (285-295) 11/21/23 09:53 Calcium 10.1 mg/dL (8.5-10.5) 11/21/23 09:53 Total Bilirubin 0.3 mg/dL (0.15-1.2) 11/21/23 09:53 AST 18 U/L (0-32) 11/21/23 09:53 ALT 12 U/L (0-33) 11/21/23 09:53 Alkaline Phosphatase 98 U/L (35-105) 11/21/23 09:53 Total Protein 7.5 g/dL (6.6-8.7) 11/21/23 09:53 Albumin 4.3 g/dL (3.5-5.2) 11/21/23 09:53 Globulin 3.2 g/dL (1.3-4.6) 11/21/23 09:53 Urine Color Light yellow (Yellow) 11/21/23 12:34 Urine Appearance Clear (CLEAR) 11/21/23 12:34 Urine pH 7 (5-7) 11/21/23 12:34 Ur Specific [place] 1.015 (1.005-1.030) 11/21/23 12:34 Urine Protein Neg (Negative) 11/21/23 12:34 Urine Glucose (UA) Norm (Normal) 11/21/23 12:34 Urine Ketones Negative (Negative) 11/21/23 12:34 Urine Blood Neg (Negative) 11/21/23 12:34 Urine Nitrate Negative (Negative) 11/21/23 12:34 Urine Bilirubin Neg (Negative) 11/21/23 12:34 Urine Urobilinogen Norm mg/dL (Negative) 11/21/23 12:34 Ur Leukocyte Esterase Negative (Negative) 11/21/23 12:34 All radiology interpretation(s) finalized by discharge Discharge Plan Discharge Patient Disposition: Home Clinical Impression: Headache Hypertension Qualifiers: Hypertension type: primary hypertension Qualified Code(s): I10 - Essential (primary) hypertension Condition: Stable Prescriptions: New amlodipine 2.5 mg tablet 2.5 mg PO DAILY Qty: 30 0RF No Action lisinopril 20 mg tablet 20 mg PO QAM propranolol 60 mg capsule,extended release 24 hr 60 mg PO QAM citalopram 10 mg tablet 10 mg PO QAM Celebrex 100 mg capsule 100 mg PO QAM Tylenol Ex Str Rapid Release 500 mg Tablet 1,000 mg PO Q6H PRN (Reason: Pain) Discharge Orders: Discharge ED (Routine); Ordered 11/21/23 Ordered By: Lance Whiting Referrals: Brayan Awad MD [Primary Care Provider] - Discharge Diet: Usual diet Discharge Activity: Increase activity as tolerated Patient Instructions: Opioid Safety, Pain Management Activity Restrictions/Additional Instructions: Thank you for choosing [facility] for your healthcare needs today. Please realize this is an emergency room and that we are providing you with a medical screening exam and this may not be complete and all inclusive of all the testing and or work up that you may need to determine your ailment or severity of your illness. It is very important that you follow up as instructed or that you return to the Emergency Department should you have concerns or if your condition changes or worsens in any way. You are seen today with a headache and with elevated blood pressure. CT did not show any acute changes. Her blood pressure did improve with medications given. Recommend that you continue to take lisinopril and add amlodipine 2.5 mg. Follow-up with your primary care doctor within the next week to recheck your blood pressure. Coding Level of Care Code ED Promotional Demonstrator for Alireza Monsivais
[2023-11-21 10:02] LABS: Basophils % 0.2 %; Eosinophils # 0.1 10^3/uL (0.0-0.8); Eosinophils % 1.4 %; Hematocrit 44.6 % (36-47); Lymphocytes # 2.7 10^3/uL (0.8-4.8); Lymphocytes % 48.8 %; Mean Corpuscular HGB Conc 33.2 g/dL (30-55); Mean Corpuscular Hemoglobin 29.5 pg (27-33); Mean Corpuscular Volume 88.8 fl (85-98); Mean Platelet Volume 10.2 fL (7.4-10.4); Monocytes # 0.5 10^3/uL (0.2-0.9); Monocytes % 8.8 %; Neutrophils # 2.28 10^3/uL (1.8-7.7); Neutrophils % 40.6 %; Nucleated Red Blood Cells % 0 %; Platelet Count 197 10^3/cmm (157-399); Red Blood Count 5.02 10^6/uL (3.85-5.65); Red Cell Distribution Width 14.2 % (12.1-15.1)
--- NOTE | 2023-11-21 10:03 | PC.PHAR ---
pt states she takes care of her own medications-pt states she only takes 4 medications-pt states she has a trelegy ellipta 100mcg-62.5 1p qd filled 08/28/23 30d/s but does not use it-pt states clonidine 0.1mg was dced ext shows last filled 0.1mg bid prn only if bp is greater than 150/90 filled on 12/18/22 15d/s-pt states she is unsure if she took her am meds today
--- NOTE | 2023-11-21 10:14 | CT_ITS ---
WS: [id number] CT HEAD TECHNIQUE: Noncontrast CT of the head obtained from the skullbase to the vertex. CLINICAL INFORMATION: sudden onset hedache with nausea, HTN COMPARISON: None. DLP: 1061.[address] scans at [facility] use at least one of these dose optimization techniques: automated e xposure control; mA and/or kV adjustment per patient size (includes targeted exams where dose is matc hed to clinical indication); or iterative reconstruction. FINDINGS: No evidence of intracranial hemorrhage or mass effect. Ventricular system and basal cisterns are harrell nt. Mild small vessel changes with mild parenchymal volume loss. No extra-axial fluid collections. No evidence of mass or mass effect. Normal lacy-white differentiation. Slight increased density of the LEFT supraclinoid ICA and M1 segment. More apparent increased density in a few of the LEFT sylvian and MCA branches. Recommend further evaluation with CTA. Mild intracran ial vascular calcification. Paranasal sinuses and mastoid air cells are well aerated. .Normal visualized soft tissues. IMPRESSION: 1. No evidence of intracranial hemorrhage or mass effect. 2. Increased density in a few of the LEFT insula and sylvian branches. Recommend CTA in further eval uation to evaluate patency. Less pronounced increased density in the LEFT supraclinoid ICA and LEFT M 1 segment. 3. No other acute findings. Notified Lance Whiting DO at 11/21/2023 10:46 AM.
[2023-11-21 10:20] LABS: Alanine Aminotransferase 12 U/L (0-33); Albumin Level 4.3 g/dL (3.5-5.2); Alkaline Phosphatase 98 U/L (35-105); Aspartate Amino Transferase 18 U/L (0-32); Blood Urea Nitrogen 16 mg/dL (8-23); Calcium 10.1 mg/dL (8.5-10.5); Carbon Dioxide 23 mmol/L (22-29); Chloride 102 mmol/L (98-107); Creatinine Clr Calc Pharmacy 60.7646; Globulin 3.2 g/dL (1.3-4.6); Glomerular Filtration Rate 83.5 mL/min (90-130); Glucose 93 mg/dL (65-115); Osmolality Calculated 285 mOsm/kg (285-295); Sodium 137 mmol/L (136-145); Total Bilirubin 0.3 mg/dL (0.15-1.2); Total Protein 7.5 g/dL (6.6-8.7)
--- NOTE | 2023-11-21 10:44 | CT_ITS ---
WS: [id number] CTA HEAD AND NECK TECHNIQUE: Contrast enhanced CTA of the head and neck with coronal and sagittal reformatted images an d maximum intensity projection (MIP) images. NASCET criteria utilized. CLINICAL INFORMATION: abnormal ct head, sudden onset headache w nausea COMPARISON: None. DLP: 414.[address] scans at [facility] use at least one of these dose optimization techniques: automated e xposure control; mA and/or kV adjustment per patient size (includes targeted exams where dose is matc hed to clinical indication); or iterative reconstruction. FINDINGS: RIGHT: RIGHT common carotid artery is patent. Mild calcified atheromatous plaque RIGHT carotid bulb e xtending into the ICA. RIGHT ICA is patent to the skull base. LEFT: LEFT common carotid artery is patent. Mild calcified atheromatous plaque LEFT carotid bulb exte nding into the ICA. LEFT ICA is patent to the skull base. INTRACRANIAL CTA: Normal vascularity to the TIFFANY and MCA territories bilaterally. No evidence of intracranial flow-limit ing stenosis or aneurysm. LEFT MCA vessels are patent. LEFT dominant vertebral artery. Smaller but patent RIGHT vertebral artery. Proximal basilar artery is patent. Persistent RIGHT BODY AND FRAME MAN. Normal vascularity to the BODY AND FRAME MAN territory bilaterally. Advanced emphysematous changes in the lung apices with apical fibrosis. IMPRESSION: 1. Less than 50% ICA stenosis bilaterally. Both ICAs are patent to the skull base. Mild calcified at heromatous disease both carotid bulbs. 2. No evidence of flow-limiting intracranial stenosis or aneurysm. 3. Persistent RIGHT BODY AND FRAME MAN. 4. Advanced emphysematous changes in the lung apices. 5. No other acute findings.
[2023-11-21] MEDS: hyDRALAzine 20 mg/mL INJ 1 mL 10 MG IVP (10:48)
[2023-11-21] MEDS: iohexol 350 mg/mL 500 mL Btl (per mL) IV (11:09)
[2023-11-21] MEDS: amlodipine 5 mg Tablet PO (12:18)
[2023-11-21] MEDS: hyDRALAzine 20 mg/mL INJ 1 mL 5 MG IVP (12:18)
[2023-11-21 12:42] LABS: Add Urine Microscopic? NO; Charge for UA Resulting for Rev
[2023-11-21 12:56] LABS: Bilirubin Urine Neg (Negative); Blood Urine Neg (Negative); Glucose Urine UA Norm (Normal); Ketones Urine Negative (Negative); Leukocyte Esterase Urine Negative (Negative); Nitrate Urine Negative (Negative); Protein Urine Neg (Negative); Specific Gravity, Urine 1.015 (1.005-1.030); Urine Appearance Clear (CLEAR); Urine Color Light yellow (Yellow); Urobilinogen Urine Norm (Negative); pH Urine 7 (5-7)
[2023-11-21] MEDS: ondansetron 2 mg/ML SDV 2 mL 4 MG IVP (13:14)
[2023-11-21] MEDS: morphine 4 mg/mL SDV 1 mL IVP (13:15)
== END 2023-11-21 14:19 | disposition home or self-care (01) ==
PROVIDERS: Emergency Provider Family Medicine; PCP Family Medicine
DX: R51.9 Headache, unspecified (principal); I10 Essential (primary) hypertension; Z87.891 Personal history of nicotine dependence; Z85.41 Personal history of malignant neoplasm of cervix uteri
CPT/HCPCS: 70450; 70496; 70498; 80053; 81003; 85025; 93005; 96374; 96375; 96376; 99285; J0360; J2270; J2405; Q9967